=== PATIENT | female | born 1975 | race Caucasian/White ===

== ENCOUNTER 2016-08-22 18:17 | Inpatient (IN) ==
--- NOTE | 2016-08-22 18:41 | Emergency Department Note ---
Disposition Clinical Impression: Pneumothorax Qualifiers: Pneumothorax type: spontaneous, primary Qualified Code(s): J93.11 - Primary spontaneous pneumothorax Disposition: Admitted As Inpatient Condition: Good Referrals: NO,PCP [Non-Partnered Physician] - Forms: ED Satisfaction Letter Time of Disposition: 19:09 SOB HPI - General Chief Complaint: ED Shortness of Breath/Dyspnea Stated Complaint: shortness of breath Time Seen by Provider: 08/22/16 18:32 Source: patient Mode of arrival: ambulatory Limitations: no limitations Nursing Notes Reviewed: Yes Vital Signs Reviewed: Yes - History of Present Illness 40-year-old female who states she's had exertional dyspnea for about a week. She thought she pulled a muscle in her back and was treating him based on that she went to see a chiropractor and had an adjustment but it really didn't help. He was seen at an outside clinic and they were concerned that her breath sounds were diminished on the left side. She presents now for evaluation. Pt Subjective Complaint: shortness of breath Onset (ago): day(s) Context: recent illness Severity: moderate Consistency/Duration: intermittent Improves with: rest Worsens with: exertion Associated symptoms: Reports: cough. Denies: fever Treatment prior to arrival: none - Related Data Home Medications Medication Instructions Recorded Confirmed Norgestimate-Ethinyl Estradiol 1 each PO DAILY 08/22/16 08/22/16 [Sprintec 28 Day Tablet] Allergies Allergy/AdvReac Type Severity Reaction Status Date / Time Penicillins Allergy Hives Verified 08/22/16 18:26 All systems ED: reviewed and negative except as stated. Constitutional: Denies: fever, chills, weakness, weight change Eyes: Denies: eye pain, eye discharge, vision change ENT ED: Denies: ear pain, throat pain, dental pain, hearing loss, epistaxis, congestion, dysphagia Cardiovascular: Denies: chest pain, palpitations, dyspnea on exertion, edema, syncope Respiratory: Reports: cough, dyspnea. Denies: wheezes, hemoptysis, stridor Gastrointestinal: Denies: abdominal pain, nausea, vomiting, diarrhea, constipation, hematemesis, melena, hematochezia Genitourinary: Denies: dysuria, frequency, hematuria, discharge Musculoskeletal: Denies: back pain, neck pain, arthralgia, myalgia Integumentary: Denies: rash, abrasion, lesions Neurological: Denies: headache, weakness, numbness, paresthesias, confusion, abnormal gait, vertigo Psychiatric: Denies: anxiety, depression, suicidal thoughts, homicidal thoughts , auditory hallucinations, visual hallucinations Endocrine: Denies: fatigue Hematological/Lymphatic: Denies: easy bleeding, easy bruising Allergic/Immunologic: Denies: facial swelling, urticaria Past Medical History - Past Medical History Medical history: Reports: no medical history Psychiatric history: Reports: no psych history - Social History Smoking Status: Never smoker Smokeless Tobacco Status: No Alcohol use: Reports: occasionally Drug use: Reports: none Physical Exam - General Limitations: no limitations General appearance: alert, in no apparent distress - Head Head exam: atraumatic, normocephalic, normal inspection - Eye Eye exam: Present: normal appearance, PERRL, EOMI - ENT ENT exam: normal exam, normal oropharynx, mucous membranes moist - Neck Neck exam: Present: normal inspection, full ROM, trachea midline, other (Neck veins are not distended) - Chest Chest inspection: Present: normal inspection, symmetric chest wall rise - Respiratory Respiratory exam: Present: other (Breath sounds diminished on the left) - Cardiovascular Cardiovascular exam: Present: normal rhythm, tachycardia, normal heart sounds - Abdominal Exam Abdominal exam: Present: soft, Non-Tender. Absent: tenderness, distention, guarding, rebound, rigidity - Extremities Exam Extremities exam: Present: normal inspection, full ROM. Absent: tenderness, pedal edema - Expanded Lower Extremity Exam Neurovascular/Tendon exam: Absent: motor deficit, sensory deficit, tendon deficit Gait: observed and normal - Back Exam Back exam: Present: normal inspection, full ROM. Absent: tenderness - Neurological Exam Neurological exam: Present: alert, oriented X3 - Psychiatric Psychiatric exam: Present: normal affect, normal mood - Skin Skin exam: Present: warm, dry, intact, normal color Course - Reevaluation(s) Reevaluation #1: Please see resident's dictation for chest tube placement. Time: 19:48 - Consultations Consultation #1: Discussed with Dr. Mcmahon, admit hospitalist and consult. Time: 19:07 Consultation #2: Discussed with aylin Marroquin. Time: 19:53 Vital Signs Temperature 98 F 08/22/16 18:21 Pulse Rate 114 08/22/16 18:21 Respiratory Rate 16 08/22/16 18:21 Blood Pressure 122/78 08/22/16 18:21 O2 Sat by Pulse Oximetry 95 08/22/16 18:21 Temperature 98 F 08/22/16 18:21 Pulse Rate 102 08/22/16 19:52 Respiratory Rate 16 08/22/16 19:52 Blood Pressure 122/80 08/22/16 19:52 O2 Sat by Pulse Oximetry 98 08/22/16 19:52 Oxygen Delivery Oxygen Delivery Room Air Shortness of Breath/Dyspnea - Lab Data Lab results reviewed: Yes I reviewed the patient's lab results. Result diagrams: 08/22/16 18:57 08/22/16 18:57 Lab Results 08/22/16 08/22/16 08/22/16 Range/Units 18:57 18:57 18:57 WBC 10.3 (4.3-11.1) K/mcL RBC 4.72 (3.82-4.97) M/mcL Hgb 12.9 (11.5-15.4) g/dL Hct 39.0 (35.3-44.9) % MCV 82.6 L (83.0-100.0) fL MCH 27.3 L (28.0-33.3) pg MCHC 33.1 (31.6-35.5) g/dL RDW 13.7 (11.5-14.5) % Plt Count 433 H (140-400) K/mcL MPV 9.0 L (9.4-12.4) fL Immature Gran % 0.2 (0-4) % Seg Neutrophils % 78.0 % Lymphocytes % 15.9 % Monocytes % 5.4 % Eosinophils % 0.1 % Basophils % 0.4 % Neutrophils # 8.1 (1.6-8.9) K/mcL Lymphocytes # 1.6 (0.6-4.6) K/mcL Monocytes # 0.6 (0.0-1.3) K/mcL Eosinophils # 0.0 (0.0-0.6) K/mcL Basophils # 0.0 (0.0-0.2) K/mcL D-Dimer 633 H (0-500) ng/mLFEU Sodium 137 (136-145) mEq/L Potassium 3.7 (3.5-4.5) mEq/L Chloride 104 (98-109) mEq/L Carbon Dioxide 23 (19-29) mEq/L BUN 13 (7-20) mg/dL Creatinine 1.00 (0.57-1.11) mg/dL Est GFR ( Amer) > 60 (> 60) Est GFR (Non-Af Amer) > 60 (> 60) BUN/Creatinine Ratio 13 (6-26) Glucose 108 H (70-99) mg/dL Calculated Osmolality 285 (280-300) Calcium 9.0 (8.6-10.8) mg/dL Troponin I (0-0.03) ng/mL 08/22/16 Range/Units 18:57 WBC (4.3-11.1) K/mcL RBC (3.82-4.97) M/mcL Hgb (11.5-15.4) g/dL Hct (35.3-44.9) % MCV (83.0-100.0) fL MCH (28.0-33.3) pg MCHC (31.6-35.5) g/dL RDW (11.5-14.5) % Plt Count (140-400) K/mcL MPV (9.4-12.4) fL Immature Gran % (0-4) % Seg Neutrophils % % Lymphocytes % % Monocytes % % Eosinophils % % Basophils % % Neutrophils # (1.6-8.9) K/mcL Lymphocytes # (0.6-4.6) K/mcL Monocytes # (0.0-1.3) K/mcL Eosinophils # (0.0-0.6) K/mcL Basophils # (0.0-0.2) K/mcL D-Dimer (0-500) ng/mLFEU Sodium (136-145) mEq/L Potassium (3.5-4.5) mEq/L Chloride (98-109) mEq/L Carbon Dioxide (19-29) mEq/L BUN (7-20) mg/dL Creatinine (0.57-1.11) mg/dL Est GFR ( Amer) (> 60) Est GFR (Non-Af Amer) (> 60) BUN/Creatinine Ratio (6-26) Glucose (70-99) mg/dL Calculated Osmolality (280-300) Calcium (8.6-10.8) mg/dL Troponin I 0.00 (0-0.03) ng/mL - Radiology Data Radiology results reviewed: Yes I reviewed the patient's radiology results. Chest X-Ray 08/22/16 19:31 IMPRESSION: Interval placement of small bore left-sided chest tube, projecting over the left upper lobe, with near complete resolution of left-sided tension pneumothorax. Patchy airspace opacity at the left base likely related to atelectasis D/ / Asaf Robert MD / Asaf Robert MD Interpreting Provider: Asaf Robert MD - EKG Data EKG attestation: Yes I reviewed and interpreted this EKG. EKG shows normal: Reports: sinus rhythm Rate: Reports: normal Rhythm: Reports: NSR Interpretation: Reports: no acute changes Critical Care Time Critical Care Time: Yes Total Critical Care Time: 30 Attestation: The high probability of a clinically significant, sudden or life threatening deterioration of the [respiratory] system(s) required my full and direct attention, intervention and personal management. The aggregate critical care time was [30] minutes. This time is in addition to time spent performing reported procedures but includes the following: [x] Data Review and interpretation [x] Patient assessment and monitoring of vital signs [x] Documentation [x] Medication orders and management
[2016-08-22 19:05] LABS: Basophils % 0.4 %; Eosinophils % 0.1 %; Hemoglobin 12.9 g/dL (11.5-15.4); Immature Granulocytes % 0.2 % (0-4); Lymphocytes # 1.6 K/mcL (0.6-4.6); Lymphocytes % 15.9 %; Mean Corpuscular HGB Conc 33.1 g/dL (31.6-35.5); Mean Corpuscular Hemoglobin 27.3 pg (28.0-33.3); Mean Corpuscular Volume 82.6 fL (83.0-100.0); Monocytes # 0.6 K/mcL (0.0-1.3); Monocytes % 5.4 %; Neutrophils # 8.1 K/mcL (1.6-8.9); Platelet Count 433 K/mcL (140-400); Red Blood Count 4.72 M/mcL (3.82-4.97); Red Cell Distribution Width 13.7 % (11.5-14.5)
[2016-08-22] MEDS ORDERED: Lidocaine/EPI 1:100k 1% 20 ML VIAL INFILT ONE (19:14)
[2016-08-22 19:17] LABS: BUN/Creatinine Ratio 13 (6-26); Blood Urea Nitrogen 13 mg/dL (7-20); Carbon Dioxide 23 mEq/L (19-29); Chloride 104 mEq/L (98-109); Glucose 108 mg/dL (70-99); Osmolality,Calculated 285 (280-300); Potassium 3.7 mEq/L (3.5-4.5); Sodium 137 mEq/L (136-145); eGFR For African Americans > 60 (> 60); eGFR For Non-African Americans > 60 (> 60)
[2016-08-22] MEDS ORDERED: Acetaminophen 325 MG TABLET PO PRN (20:09)
[2016-08-22] MEDS ORDERED: Naloxone 0.4 MG/ML INJ IVP PRN (20:09)
[2016-08-22] MEDS ORDERED: Ondansetron 4 MG/2 ML VIAL IVP PRN (20:09)
[2016-08-22] MEDS ORDERED: 0.9 % Sodium Chloride 1,000 ML IVC SCH (20:15)
--- NOTE | 2016-08-22 20:17 | Emergency Department Note ---
Disposition Clinical Impression: Pneumothorax Qualifiers: Pneumothorax type: spontaneous, primary Qualified Code(s): J93.11 - Primary spontaneous pneumothorax Disposition: Admitted As Inpatient Condition: Good Referrals: NO,PCP [Non-Partnered Physician] - Forms: ED Satisfaction Letter General Adult HPI - General Chief complaint: ED Shortness of Breath/Dyspnea Stated complaint: shortness of breath Time Seen by Provider: 08/22/16 18:32 Source: patient Mode of arrival: ambulatory Limitations: no limitations - History of Present Illness HPI Narrative: This note serves as a procedure note for the left-sided tube thoracostomy. Please refer to Dr. Barragan's note for complete history of present illness, physical exam, clinical course. Pain Scale: 0 - Related Data Home Medications Medication Instructions Recorded Confirmed Norgestimate-Ethinyl Estradiol 1 each PO DAILY 08/22/16 08/22/16 [Sprintec 28 Day Tablet] Allergies Allergy/AdvReac Type Severity Reaction Status Date / Time Penicillins Allergy Hives Verified 08/22/16 18:26 Constitutional: Denies: fever, chills, weakness, weight change Eyes: Denies: eye pain, eye discharge, vision change ENT ED: Denies: ear pain, throat pain, dental pain, hearing loss, epistaxis, congestion, dysphagia Cardiovascular: Denies: chest pain, palpitations, dyspnea on exertion, edema, syncope Respiratory: Reports: cough, dyspnea. Denies: wheezes, hemoptysis, stridor Gastrointestinal: Denies: abdominal pain, nausea, vomiting, diarrhea, constipation, hematemesis, melena, hematochezia Genitourinary: Denies: dysuria, frequency, hematuria, discharge Musculoskeletal: Denies: back pain, neck pain, arthralgia, myalgia Integumentary: Denies: rash, abrasion, lesions Neurological: Denies: headache, weakness, numbness, paresthesias, confusion, abnormal gait, vertigo Psychiatric: Denies: anxiety, depression, suicidal thoughts, homicidal thoughts , auditory hallucinations, visual hallucinations Endocrine: Denies: fatigue Hematological/Lymphatic: Denies: easy bleeding, easy bruising Allergic/Immunologic: Denies: facial swelling, urticaria Past Medical History - Past Medical History Medical history: Reports: no medical history Psychiatric history: Reports: no psych history - Social History Smoking Status: Never smoker Smokeless Tobacco Status: No Alcohol use: Reports: occasionally Drug use: Reports: none Physical Exam - General Limitations: no limitations General appearance: alert, in no apparent distress Course Vital Signs Temperature 98 F 08/22/16 18:21 Pulse Rate 114 08/22/16 18:21 Respiratory Rate 16 08/22/16 18:21 Blood Pressure 122/78 08/22/16 18:21 O2 Sat by Pulse Oximetry 95 08/22/16 18:21 Temperature 98 F 08/22/16 18:21 Pulse Rate 102 08/22/16 19:52 Respiratory Rate 16 08/22/16 19:52 Blood Pressure 122/80 08/22/16 19:52 O2 Sat by Pulse Oximetry 98 08/22/16 19:52 Oxygen Delivery Oxygen Delivery Room Air Procedures - Chest Tube Chest Tube 1 Chest Tube Location: left Size of Tube (cm): 8 (8fr) Chest Tube Prep: betadine prep, sterile drapes applied Local Anesthetic: lidocaine 1%, with epi Amount of Anesthesia Used (mL): 8 Incision Made With: #11 blade Post Procedure: sutured to skin, sterile dressing applied Tube Drainage: other (air) Post Procedure CXR?: Yes Patient Tolerated Procedure: Yes Progress: Procedure performed by myself. Observed by Dr. Chaney and my attending, Dr. Fox. 8fr tube thoracostomy placed in the left anterior axillary line of the fifth intercostal space. Postprocedure x-ray showed appropriate tube placement angled cephalad with improvement in left-sided pneumothorax. Medical Decision Making - Lab Data Result diagrams: 08/22/16 18:57 08/22/16 18:57 Lab Results 08/22/16 08/22/16 08/22/16 Range/Units 18:57 18:57 18:57 WBC 10.3 (4.3-11.1) K/mcL RBC 4.72 (3.82-4.97) M/mcL Hgb 12.9 (11.5-15.4) g/dL Hct 39.0 (35.3-44.9) % MCV 82.6 L (83.0-100.0) fL MCH 27.3 L (28.0-33.3) pg MCHC 33.1 (31.6-35.5) g/dL RDW 13.7 (11.5-14.5) % Plt Count 433 H (140-400) K/mcL MPV 9.0 L (9.4-12.4) fL Immature Gran % 0.2 (0-4) % Seg Neutrophils % 78.0 % Lymphocytes % 15.9 % Monocytes % 5.4 % Eosinophils % 0.1 % Basophils % 0.4 % Neutrophils # 8.1 (1.6-8.9) K/mcL Lymphocytes # 1.6 (0.6-4.6) K/mcL Monocytes # 0.6 (0.0-1.3) K/mcL Eosinophils # 0.0 (0.0-0.6) K/mcL Basophils # 0.0 (0.0-0.2) K/mcL D-Dimer 633 H (0-500) ng/mLFEU Sodium 137 (136-145) mEq/L Potassium 3.7 (3.5-4.5) mEq/L Chloride 104 (98-109) mEq/L Carbon Dioxide 23 (19-29) mEq/L BUN 13 (7-20) mg/dL Creatinine 1.00 (0.57-1.11) mg/dL Est GFR ( Amer) > 60 (> 60) Est GFR (Non-Af Amer) > 60 (> 60) BUN/Creatinine Ratio 13 (6-26) Glucose 108 H (70-99) mg/dL Calculated Osmolality 285 (280-300) Calcium 9.0 (8.6-10.8) mg/dL Troponin I (0-0.03) ng/mL 08/22/16 Range/Units 18:57 WBC (4.3-11.1) K/mcL RBC (3.82-4.97) M/mcL Hgb (11.5-15.4) g/dL Hct (35.3-44.9) % MCV (83.0-100.0) fL MCH (28.0-33.3) pg MCHC (31.6-35.5) g/dL RDW (11.5-14.5) % Plt Count (140-400) K/mcL MPV (9.4-12.4) fL Immature Gran % (0-4) % Seg Neutrophils % % Lymphocytes % % Monocytes % % Eosinophils % % Basophils % % Neutrophils # (1.6-8.9) K/mcL Lymphocytes # (0.6-4.6) K/mcL Monocytes # (0.0-1.3) K/mcL Eosinophils # (0.0-0.6) K/mcL Basophils # (0.0-0.2) K/mcL D-Dimer (0-500) ng/mLFEU Sodium (136-145) mEq/L Potassium (3.5-4.5) mEq/L Chloride (98-109) mEq/L Carbon Dioxide (19-29) mEq/L BUN (7-20) mg/dL Creatinine (0.57-1.11) mg/dL Est GFR ( Amer) (> 60) Est GFR (Non-Af Amer) (> 60) BUN/Creatinine Ratio (6-26) Glucose (70-99) mg/dL Calculated Osmolality (280-300) Calcium (8.6-10.8) mg/dL Troponin I 0.00 (0-0.03) ng/mL
--- NOTE | 2016-08-22 20:18 | Internal Med History&Physical ---
Date of Encounter: 08/22/16 Time of Encounter: 20:15 Assessment and Plan (1) Pneumothorax Current visit: Yes Status: Acute Left tension pneumothorax status post chest tube placed Follow with surgery/Dr. Salome Dennison separate for DT prophylaxis. Admitted as inpatient, expected to stay more than 2 midnights. Full code. Time spent on this admission 40 minutes. High risk due to pneumothorax Qualifiers: Pneumothorax type: spontaneous, tension Qualified Code(s): J93.0 - Spontaneous tension pneumothorax (2) Elevated d-dimer Current visit: Yes Status: Acute Unclear etiology As the patient is on control, we will have a very low threshold to perform a CT angiogram of the chest if needed if not improving Risks were explained to the patient, option to do it was given (3) control Current visit: Yes Status: Acute Qualifiers: Contraceptive encounter type: surveillance Contraceptive type: pill Qualified Code(s): Z30.41 - Encounter for surveillance of contraceptive pills (4) Thrombocytosis Current visit: Yes Status: Acute (5) Tachycardia Current visit: Yes Status: Acute Possibly due to pneumothorax, consider pulmonary emboli if not improving (6) DVT prophylaxis Current visit: Yes Status: Acute Internal Medicine - H&P: HPI Chief complaint: Shortness of breath Admitted From: Emergency Dept History of present illness: Ms. Hood is a 40 year old female with no past medical history who started complaining of left thorax thoracic 1 week ago, became short of breath this last Saturday. 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 Continue emergency room and the chest x-ray shows a little left large tension pneumothorax. A chest tube was placed. Dr. Mcmahon was consulted and requested this patient to be admitted today hospitalist service. The patient's platelets are 443 d-dimer 633 her heart rate has decreased from 114 down to 102. Denies any other complaint. The pain at the moment is 2 out of 10. Was explained that she needs to be hospitalized and we will have a low threshold to do a CT angiography the chest if the shortness of breath persists. Chest x-ray shows complete reexpansion of the left lung Past Med Surg Social Fam HX - Past Medical History Medical history: no medical history Psychiatric history: no psych history - Past Surgical History Surgical History: other ([place] tooth removal) - Social History Smoking Status: Never smoker Smokeless Tobacco Status: No Alcohol use: occasionally Drug use: none - Additional Family History Additional family history: Mother with ablation, maternal grandfather who of myocardial infarction at the age of 37, maternal grandmother with diabetes, paternal grandfather with lung cancer Internal Medicine - H&P: Meds Norgestimate-Ethinyl Estradiol [Sprintec 28 Day Tablet] 1 each PO DAILY [History] Allergies Penicillins Allergy (Verified 08/22/16 18:26) Hives All Systems PM: A 10-system review of systems was performed and is negative for pertinent findings except as documented above in the HPI. Review of systems: No other complaints, other systems out of the ten reviewed are negative - Constitutional Vitals: Temp Pulse Resp BP Pulse Ox 98 F 102 16 122/80 98 08/22/16 18:21 08/22/16 19:52 08/22/16 19:52 08/22/16 19:52 08/22/16 19:52 General appearance: Present: A&O X 3 - Head Head exam: Present: atraumatic, normocephalic - Eye Eye exam: Present: PERRL, conjuntiva pink, sclera anicteric Pupils: Present: PERRL - Neck Neck exam general surgery: Present: supple, trachea midline. Absent: lymphadenopathy - Respiratory Respiratory exam: Present: CTAB. Absent: accessory muscle use, rales, rhonchi, wheezes - Cardiovascular Cardiovascular exam: Present: RRR, +S1, +S2. Absent: diastolic murmur, gallop, rubs, systolic murmur Additional comments: Chest tube placed in the left lateral thorax - GI/Abdominal GI/Abdominal exam: Present: normal bowel sounds, soft, no peritoneal signs. Absent: distended, tenderness - Extremities Exam Extremities exam: Present: warm, radial pulses palpable and symetrical. Absent : calf tenderness, cyanotic, pedal edema - Neurological Exam Neurological exam: Present: CN II-XII intact, oriented X3, no focal deficits. Absent: pronater drift, facial droop, speech deficit - Skin Skin exam: Present: dry, intact Internal Med - H&P Results - Labs CBC & Chem 7: 08/22/16 18:57 08/22/16 18:57 Labs: Short CBC 08/22/16 Range/Units 18:57 WBC 10.3 (4.3-11.1) K/mcL Hgb 12.9 (11.5-15.4) g/dL Hct 39.0 (35.3-44.9) % Plt Count 433 H (140-400) K/mcL Neutrophils # 8.1 (1.6-8.9) K/mcL BMP 08/22/16 18:57 Sodium 137 Potassium 3.7 Chloride 104 Carbon Dioxide 23 BUN 13 Creatinine 1.00 Glucose 108 H Calcium 9.0 Cardiac Enzymes 08/22/16 Range/Units 18:57 Troponin I 0.00 (0-0.03) ng/mL - Impressions ITS Impressions Chest X-Ray 08/22/16 18:38 IMPRESSION: Large left tension pneumothorax. Findings were called to Dr. Barragan of the Emergency Department at 7 p.m., 08/22/2016. D/ / 08/22/2016 19:05:23 Asaf Robert MD / yanet Interpreting Provider: Asaf Robert MD Chest X-Ray 08/22/16 19:31 IMPRESSION: Interval placement of small bore left-sided chest tube, projecting over the left upper lobe, with near complete resolution of left-sided tension pneumothorax. Patchy airspace opacity at the left base likely related to atelectasis. D/ / 08/22/2016 20:08:41 Asaf Robert MD / yanet Interpreting Provider: Asaf Robert MD
[2016-08-23] MEDS: *HR* Heparin 5,000 UNIT/ML VIAL SQ SCH ×2 (00:45→08:43)
[2016-08-23] MEDS: Ketorolac 30 MG/ML VIAL IVP PRN (03:40)
[2016-08-23 05:11] LABS: Basophils # 0.1 K/mcL (0.0-0.2); Basophils % 0.6 %; Eosinophils # 0.1 K/mcL (0.0-0.6); Eosinophils % 1.1 %; Hematocrit 36.3 % (35.3-44.9); Hemoglobin 11.7 g/dL (11.5-15.4); Immature Granulocytes % 0.3 % (0-4); Lymphocytes # 2.4 K/mcL (0.6-4.6); Lymphocytes % 25.5 %; Mean Corpuscular HGB Conc 32.2 g/dL (31.6-35.5); Mean Corpuscular Hemoglobin 27.1 pg (28.0-33.3); Mean Corpuscular Volume 84.2 fL (83.0-100.0); Mean Platelet Volume 9.6 fL (9.4-12.4); Monocytes # 0.8 K/mcL (0.0-1.3); Monocytes % 8.6 %; Platelet Count 368 K/mcL (140-400); Red Blood Count 4.31 M/mcL (3.82-4.97); Red Cell Distribution Width 13.7 % (11.5-14.5); Segmented Neutrophils % 63.9 %
[2016-08-23 05:35] LABS: BUN/Creatinine Ratio 14 (6-26); Blood Urea Nitrogen 13 mg/dL (7-20); Calcium 8.4 mg/dL (8.6-10.8); Carbon Dioxide 26 mEq/L (19-29); Chloride 106 mEq/L (98-109); Glucose 102 mg/dL (70-99); Osmolality,Calculated 286 (280-300); Potassium 3.4 mEq/L (3.5-4.5); Sodium 138 mEq/L (136-145); eGFR For African Americans > 60 (> 60); eGFR For Non-African Americans > 60 (> 60)
[2016-08-23] MEDS: SPRINTEC PO SCH (08:43)
--- NOTE | 2016-08-23 09:24 | Electrocardiograph Report ---
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
--- NOTE | 2016-08-23 13:23 | Internal Med Progress Note ---
<Marybeth Vidales - Last Filed: 08/23/16 13:52> Date of Encounter: 08/23/16 Time of Encounter: 13:16 - Assessment and plan (1) Spontaneous tension pneumothorax Current Visit: Yes Status: Acute Assessment and plan: pt with unknown cause of spontaneous tension pneumothorax CT scan with large left sided pneumothorax chest tube placed by Dr. Mcmahon overnight repeat CT scan this morning with smaller residual pneumothorax pt today states resolution of dyspnea, 98%saturation on room air (2) Pneumothorax Current Visit: Yes Status: Acute Qualifiers: Pneumothorax type: spontaneous, tension Qualified Code(s): J93.0 - Spontaneous tension pneumothorax (3) Elevated d-dimer Current Visit: Yes Status: Acute Assessment and plan: ddimer 633 recently started on oral contraceptives CTA - for PE (4) control Current Visit: Yes Status: Acute Assessment and plan: started recently by her OBgyn for uterine bleeding not recommended for pts >35 ddimer elevated 633 will get CTA chest follow up with OBgyn Qualifiers: Contraceptive encounter type: surveillance Contraceptive type: pill Qualified Code(s): Z30.41 - Encounter for surveillance of contraceptive pills (5) Tachycardia Current Visit: Yes Status: Acute Assessment and plan: resolved (6) DVT prophylaxis Current Visit: Yes Status: Acute Assessment and plan: SQ heparin - Subjective Interval history: 40 yo F presented with severe conversational dyspnea, admitted with a spontaneous tension pneumothorax of left side. Dr. Mcmahon was consulted and placed left sided chest tube lastnight. Pt states that dyspnea completely resolved with placement of chest tube. Pt states that she had some dyspnea start last week after doing a trail run but has not hano chest, back or other trauma occur. States she never smoked, does not have asthma, COPD. Denies known blood clots and has not been on any new medications besides starting OCP a few weeks ago. Pt denies current chest pain, palpitations, shortness of breath, cough, calf pain, fever, chills, nausea, vomiting. - Constitutional Vitals: Temp Pulse Resp BP Pulse Ox 98.6 F 84 17 123/75 98 08/23/16 04:36 08/23/16 07:00 08/23/16 07:00 08/23/16 07:00 08/23/16 07:00 General appearance: Present: A&O X 3, pleasant, no acute distress, answers questions appropriately - Head Head exam: Present: atraumatic, normocephalic - Eye Eye exam: Present: EOMI, PERRL, conjuntiva pink, sclera anicteric Pupils: Present: PERRL - Neck Neck exam general surgery: Present: supple, trachea midline. Absent: lymphadenopathy - Respiratory Respiratory exam: Present: decreased breath sounds (left base). Absent: accessory muscle use, chest wall tenderness, rales, respiratory distress, rhonchi, stridor, wheezes, tachypnea Additional comments: no conversational dyspnea, 98%saturation on room air - Expanded Respiratory Exam Location: decreased breath sounds: Left, Lower - Cardiovascular Cardiovascular exam: Present: RRR, +S1, +S2. Absent: diastolic murmur, gallop, rubs, systolic murmur - GI/Abdominal GI/Abdominal exam: Present: normal bowel sounds, soft, no peritoneal signs. Absent: distended, tenderness - Extremities Exam Extremities exam: Present: warm, radial pulses palpable and symetrical. Absent : calf tenderness, cyanotic, pedal edema - Incison Incision: Present: clean and dry, intact Comments: left sided chest tube in place to wall suction, C/D/I - Neurological Exam Neurological exam: Present: CN II-XII intact, oriented X3, no focal deficits. Absent: pronater drift, facial droop, speech deficit - Skin Skin exam: Present: dry, intact Internal Medicine: Result - Labs CBC & Chem 7: 08/23/16 04:17 08/23/16 04:17 Labs: Short CBC 08/23/16 Range/Units 04:17 WBC 9.4 (4.3-11.1) K/mcL Hgb 11.7 (11.5-15.4) g/dL Hct 36.3 (35.3-44.9) % Plt Count 368 (140-400) K/mcL Neutrophils # 6.0 (1.6-8.9) K/mcL BMP 08/23/16 04:17 Sodium 138 Potassium 3.4 L Chloride 106 Carbon Dioxide 26 BUN 13 Creatinine 0.94 Glucose 102 H Calcium 8.4 L - ABG Interpretation ABG results: PT/INR, D-dimer D-Dimer 633 ng/mLFEU (0-500) H 08/22/16 18:57 - Impressions Impressions Chest CTA 08/23/16 11:00 IMPRESSION: 1. No findings of pulmonary embolism. 2. Trace to small left pneumothorax with a left percutaneous pleural drainage catheter in place. No findings of tension. 3. Trace left pleural effusion. 4. Peribronchovascular groundglass opacities near the left lung base, most likely atelectasis or re-expansion edema. Pneumonia could appear similar. D/ / Konstantin Lemus MD / Konstantin Lemus MD Interpreting Provider: Konstantin Lemus MD Consult Discharge Plan - Plan Referrals: Padilla Flannery DO [Primary Care Provider] - <Erick Keith - Last Filed: 08/23/16 18:47> Date of Encounter: 08/23/16 - Assessment and plan (1) Spontaneous tension pneumothorax Current Visit: Yes Status: Acute (2) Elevated d-dimer Current Visit: Yes Status: Acute - Constitutional Vitals: Temp Pulse Resp BP Pulse Ox 98.6 F 69 16 120/76 98 08/23/16 04:36 08/23/16 15:00 08/23/16 15:00 08/23/16 15:00 08/23/16 07:00 Internal Medicine: Result - Labs CBC & Chem 7: 08/23/16 04:17 08/23/16 04:17 Labs: Short CBC 08/23/16 Range/Units 04:17 WBC 9.4 (4.3-11.1) K/mcL Hgb 11.7 (11.5-15.4) g/dL Hct 36.3 (35.3-44.9) % Plt Count 368 (140-400) K/mcL Neutrophils # 6.0 (1.6-8.9) K/mcL BMP 08/23/16 04:17 Sodium 138 Potassium 3.4 L Chloride 106 Carbon Dioxide 26 BUN 13 Creatinine 0.94 Glucose 102 H Calcium 8.4 L - ABG Interpretation ABG results: PT/INR, D-dimer D-Dimer 633 ng/mLFEU (0-500) H 08/22/16 18:57 - Impressions Impressions Chest CTA 08/23/16 11:00 IMPRESSION: 1. No findings of pulmonary embolism. 2. Trace to small left pneumothorax with a left percutaneous pleural drainage catheter in place. No findings of tension. 3. Trace left pleural effusion. 4. Peribronchovascular groundglass opacities near the left lung base, most likely atelectasis or re-expansion edema. Pneumonia could appear similar. D/ / Konstantin Lemus MD / Konstantin Lemus MD Interpreting Provider: Konstantin Lemus MD Chest X-Ray 08/23/16 16:30 IMPRESSION: Tiny residual left apical pneumothorax after removal of left chest tube. D/ / Hernan Breaux MD / Hernan Breaux MD Interpreting Provider: Hernan Breaux MD - Attending Attestation I examined this patient and my medical decision-making was reviewed with the Resident Physician on 08/23/16. I agree with the documented findings, disposition and treatment plan as described except to the extent set forth below. Ms Hood is currently admitted for acute spontaneous tension PTX. She is high risk due to the potential for recurrence. Ms. Hood denies issues at this time. Chest tube has been managed by surgery and has been removed this afternoon. Repeat CXR shows small residual PTX. She is on oxygen now. Exam Alert. Comfortable Heart reg No wheeze I/P 1. PTX Further diagnoses and plan as above.
--- NOTE | 2016-08-23 15:06 | Pulmonology Consult Note ---
Date of Encounter: 08/23/16 Time of Encounter: 15:03 Assessment and Plan (1) Pneumothorax Current Visit: Yes Status: Acute Impression Spontaneous primary pneumothorax. Appears to be idiopathic. No relationship to menses no antecedent trauma no family history no smoking history CTA with that was performed today was not indicative of underlying intrinsic lung pathology (such as cystic lung disease or bullous lung disease with spontaneous rupture). It was however notable for small residual pneumothorax at the time chest tube was still in situ. When I examined the patient the chest tube had been removed she was not a distress and oxygen saturation was in the high 90s on room air a chest x-ray is pending at the present moment. Recs: -Repeat chest x-ray present if patient does not have any residual pneumothorax seen on chest x-ray otherwise hemodynamically stable good oxygen saturation denies symptoms could likely be discharged home safely later in the day she is reliable patient and understands what her symptoms were. -If there is evidence of residual pneumothorax I would recommend keeping patient for monitoring and placement on nasal cannula oxygen to keep saturation in the 100% overnight. Unless termination of large pneumothorax do not feel that placement of another chest tube would be necessary -As far as risk of repeat pneumothorax in general terms about a third of patients to experience repeat pneumothorax majority of these are in the first month. Went to the patient that there are no clear guidelines on activity after her first pneumothorax however be prudent to avoid at least within the first month underwater diving air travel or strain his exercise such as jogging in isolated venues. -Should the patient experience another episode of pneumothorax recommend referral to Cardiothoracic surgery for pleurodesis. -Although she does not have any evidence of intrinsic lung disease current imaging the CT angiogram is not the test of choice for delineating this I did welcome the patient to follow with us in pulmonary clinic in the next 2-3 months for ongoing evaluation and possible high-resolution CT scan. Pulmonary will continue to follow while she is inpatient Qualifiers: Pneumothorax type: spontaneous, tension Qualified Code(s): J93.0 - Spontaneous tension pneumothorax History of Present Illness Consult date: 08/23/16 Requesting physician: Erick Keith Reason for consult: pneumothorax Chief complaint: Shortness of breath History of present illness: This 40-year-old woman with no significant past medical history who presented to the ED for worsening dyspnea chest pain and tachycardia. Her symptoms began last week when she thought she may have pulled a muscle in her back. That was on Saturday over the course of the week and the week and she had progressive pain that was not alleviated with massage or chiropractic manipulation though she denies any acupuncture. 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 Upon presentation to the ED she was noted to have large left-sided pneumothorax and a small bore chest tube was placed with overall improvement in reexpansion but not complete resolution. The patient is a lifelong nonsmoker, no family history of pneumothorax. No history of antecedent trauma. Has no recent history of extremes in pressure change i.e. flying or diving. She has never been diagnosed with lung condition to her knowledge. Past Med Surg Social Fam HX - Past Medical History Medical history: no medical history Psychiatric history: no psych history - Past Surgical History Surgical History: other - Social History Smoking Status: Never smoker Smokeless Tobacco Status: No Alcohol use: occasionally Drug use: none - Family History Father Name: alfredo sullivan Age: 64 Living Status: Still Living Hx Family Cardiac Disorders: No Hx Family Respiratory Disorders: No Hx Family Cancer: Yes (skin cancer) Hx Family GI Disorders: Yes (stomach ulcers) Hx Family Genitourinary Disorders: No Hx Family Endocrine Disorder: No Hx Family Musculoskeletal Disorders: No Hx Family Neuromuscular Disorders: No Hx Family Neurologic Disorders: No Hx Family HEENT Disorders: No Hx Family Autoimmune Disorders: No Hx Family Reproductive Disorders: No Hx Family Psychosocial Disorders: No Hx Family Medical Disorders: No Medications and Allergies Norgestimate-Ethinyl Estradiol [Sprintec 28 Day Tablet] 1 each PO DAILY [History] Allergies Penicillins Allergy (Verified 08/22/16 18:26) Hives All Systems: A 10-system review of systems was performed and is negative for pertinent findings except as documented above in the HPI. Physical Examination General appearance: no acute distress Eyes: nonicteric ENT: oropharynx moist Effort: normal Auscultation: bilateral: clear Cardiovascular: regular rate and rhythm Gastrointestinal: normoactive bowel sounds Integumentary: normal Extremities: no edema Musculoskeletal: no deformities normal mental status, non-focal exam Results - Laboratory Findings CBC and BMP: 08/23/16 04:17 08/23/16 04:17 PT/INR, D-dimer D-Dimer 633 ng/mLFEU (0-500) H 08/22/16 18:57 Abnormal lab findings: Abnormal lab results MCH 27.1 pg (28.0-33.3) L 08/23/16 04:17 D-Dimer 633 ng/mLFEU (0-500) H 08/22/16 18:57 Potassium 3.4 mEq/L (3.5-4.5) L 08/23/16 04:17 Glucose 102 mg/dL (70-99) H 08/23/16 04:17 POC Glucose 98 (58-89) H 08/22/16 21:23 Calcium 8.4 mg/dL (8.6-10.8) L 08/23/16 04:17 - Diagnostic Findings Chest x-ray: report reviewed, image reviewed CT scan - chest: report reviewed, image reviewed - Clinical Findings Intake & Output: Intake & Output 08/22/16 08/23/16 08/23/16 23:59 07:59 15:59 Output Total 0 / 0 Balance 0 / 0 Consult Discharge Plan - Plan Referrals: Padilla Flannery DO [Primary Care Provider] -
[2016-08-24] MEDS: SPRINTEC PO SCH (07:51)
--- NOTE | 2016-08-24 09:54 | Internal Med Progress Note ---
<Marybeth Vidales - Last Filed: 08/24/16 09:52> Date of Encounter: 08/24/16 Time of Encounter: 09:52 - Assessment and plan (1) Spontaneous tension pneumothorax Current Visit: Yes Status: Acute Assessment and plan: pt with unknown cause of spontaneous tension pneumothorax CT scan with large left sided pneumothorax chest tube removed by Dr. Mcmahon overnight pt today states resolution of dyspnea, 98%saturation on room air CXR this morning with worsening pneumothorax measuring 34.5, 15% was 28.2 lastnight supplemental oxygen pulmonology recommendations (2) Pneumothorax Current Visit: Yes Status: Acute Qualifiers: Pneumothorax type: spontaneous, tension Qualified Code(s): J93.0 - Spontaneous tension pneumothorax (3) Elevated d-dimer Current Visit: Yes Status: Acute Assessment and plan: ddimer 633 recently started on oral contraceptives CTA - for PE (4) control Current Visit: Yes Status: Acute Assessment and plan: started recently by her OBgyn for uterine bleeding not recommended for pts >35 ddimer elevated 633 will get CTA chest follow up with OBgyn Qualifiers: Contraceptive encounter type: surveillance Contraceptive type: pill Qualified Code(s): Z30.41 - Encounter for surveillance of contraceptive pills (5) Tachycardia Current Visit: Yes Status: Acute Assessment and plan: resolved (6) DVT prophylaxis Current Visit: Yes Status: Acute Assessment and plan: SQ heparin - Subjective Interval history: 40 yo F presented with severe conversational dyspnea, admitted with a spontaneous tension pneumothorax of left side. Dr. Mcmahon was consulted and placed left sided chest tube lastnight. Pt states that dyspnea completely resolved with placement of chest tube. Pt states that she had some dyspnea start last week after doing a trail run but has not had chest, back or other trauma occur. States she never smoked, does not have asthma, COPD. Denies known blood clots and has not been on any new medications besides starting OCP a few weeks ago. Pt denies current chest pain, palpitations, shortness of breath, cough, calf pain, fever, chills, nausea, vomiting. - Constitutional Vitals: Temp Pulse Resp BP Pulse Ox 98.1 F 74 17 115/75 99 08/24/16 07:15 08/24/16 07:15 08/24/16 03:39 08/24/16 07:15 08/24/16 03:39 General appearance: Present: A&O X 3, pleasant, no acute distress, answers questions appropriately - Head Head exam: Present: atraumatic, normocephalic - Eye Eye exam: Present: PERRL, conjuntiva pink, sclera anicteric Pupils: Present: PERRL - Neck Neck exam general surgery: Present: supple, trachea midline. Absent: lymphadenopathy - Respiratory Respiratory exam: Present: CTAB. Absent: accessory muscle use, rales, rhonchi, wheezes Additional comments: O2 sat 99% on 2L NC, no conversational dyspnea - Cardiovascular Cardiovascular exam: Present: RRR, +S1, +S2. Absent: diastolic murmur, gallop, rubs, systolic murmur - GI/Abdominal GI/Abdominal exam: Present: normal bowel sounds, soft, no peritoneal signs. Absent: distended, tenderness - Extremities Exam Extremities exam: Present: warm, radial pulses palpable and symetrical. Absent : calf tenderness, cyanotic, pedal edema - Neurological Exam Neurological exam: Present: CN II-XII intact, oriented X3, no focal deficits. Absent: pronater drift, facial droop, speech deficit - Skin Skin exam: Present: dry, intact Internal Medicine: Result - Labs CBC & Chem 7: 08/23/16 04:17 08/23/16 04:17 - ABG Interpretation ABG results: PT/INR, D-dimer D-Dimer 633 ng/mLFEU (0-500) H 08/22/16 18:57 - Impressions Impressions Chest CTA 08/23/16 11:00 IMPRESSION: 1. No findings of pulmonary embolism. 2. Trace to small left pneumothorax with a left percutaneous pleural drainage catheter in place. No findings of tension. 3. Trace left pleural effusion. 4. Peribronchovascular groundglass opacities near the left lung base, most likely atelectasis or re-expansion edema. Pneumonia could appear similar. D/ / Konstantin Lemus MD / Konstantin Lemus MD Interpreting Provider: Konstantin Lemus MD Chest X-Ray 08/23/16 16:30 IMPRESSION: Tiny residual left apical pneumothorax after removal of left chest tube. D/ / Hernan Breaux MD / Hernan Breaux MD Interpreting Provider: Hernan Breaux MD Chest X-Ray 08/24/16 07:00 IMPRESSION: Slight interval increased size of left apical pneumothorax over 24 hours. This is estimated to be approximately 15%. D/ / Padilla Mitchell MD / Padilla Mitchell MD Interpreting Provider: Padilla Mitchell MD Consult Discharge Plan - Plan Referrals: Padilla Flannery DO [Primary Care Provider] - <Erick Keith - Last Filed: 08/24/16 19:12> Date of Encounter: 08/24/16 - Assessment and plan (1) Spontaneous tension pneumothorax Current Visit: Yes Status: Acute (2) Elevated d-dimer Current Visit: Yes Status: Acute (3) Tachycardia Current Visit: Yes Status: Acute (4) Anxiety about health Current Visit: Yes Status: Acute - Constitutional Vitals: Temp Pulse Resp BP Pulse Ox 98.4 F 78 19 115/77 97 08/24/16 15:44 08/24/16 15:44 08/24/16 15:44 08/24/16 15:44 08/24/16 15:44 Internal Medicine: Result - Labs CBC & Chem 7: 08/23/16 04:17 08/23/16 04:17 - ABG Interpretation ABG results: PT/INR, D-dimer PT 11.1 Seconds (9.4-12.1) 08/24/16 12:35 D-Dimer 633 ng/mLFEU (0-500) H 08/22/16 18:57 - Impressions Impressions Chest X-Ray 08/24/16 07:00 IMPRESSION: Slight interval increased size of left apical pneumothorax over 24 hours. This is estimated to be approximately 15%. D/ / Padilla Mitchell MD / Padilla Mitchell MD Interpreting Provider: Padilla Mitchell MD Chest X-Ray 08/24/16 15:12 IMPRESSION: Interval placement of left pleural catheter, projecting over the left parahilar region, with near complete evacuation of left-sided pneumothorax. D/ / 08/24/2016 16:52:01 Asaf Robert MD / antony Interpreting Provider: Asaf Robert MD - Attending Attestation I examined this patient and my medical decision-making was reviewed with the Resident Physician on 08/24/16. I agree with the documented findings, disposition and treatment plan as described except to the extent set forth below. Ms Hood is currently admitted for acute spontaneous tension PTX. She remains high risk due to the potential for worsening resp status. Ms. Hood is very anxious. The PTX is still present on CXR. Exam Alert. Anxious Heart tachy I/P 1. Spontaneous tension PTX 2. Anxiety I discussed with both surgery and pulm in regards to plan. At this time (and in discussion with the patient) we have elected to place another chest tube and place to suction again. Will recheck xray in AM and hope to be able to put to water seal and ultimately remove.
--- NOTE | 2016-08-24 09:59 | General Surgery Consult Note ---
Date of Encounter: 08/24/16 Time of Encounter: 09:57 Assessment and Plan (1) Pneumothorax Current Visit: Yes Status: Acute [place] catheter tube was removed yesterday by myself. Repeat chest x-ray reveals the same tiny apical pneumothorax was identified on her chest CT. She has no pulmonary embolus. I recommended that she be discharged at home. She knows that if she would experience any chest discomfort and/or shortness of breath she is to contact the office for reevaluation. Qualifiers: Pneumothorax type: spontaneous, tension Qualified Code(s): J93.0 - Spontaneous tension pneumothorax History of Present Illness Consult date: 08/23/16 Reason for consult: chest tube History of present illness: This is a 40-year-old female presents to the emergency department for acute onset of shortness of breath. She states she underwent an exercise regimen last Saturday. She did not feel well following exercise regimen. She then subsequently became more short of breath and was having tachycardia that she identified while working. She presented to the emergency department on Saturday after having continued symptoms through the weekend. She felt back pain and thought she had a soft tissue injury. She rated the shortness of breath as an 8 out of 10 at its worst. She is progressively getting worse with non- tolerance to exercise. Past Med Surg Social Fam HX - Past Medical History Medical history: no medical history Psychiatric history: no psych history - Past Surgical History Surgical History: other - Social History Smoking Status: Never smoker Smokeless Tobacco Status: No Alcohol use: occasionally Drug use: none - Family History Father Name: alfredo sullivan Age: 64 Living Status: Still Living Hx Family Cardiac Disorders: No Hx Family Respiratory Disorders: No Hx Family Cancer: Yes (skin cancer) Hx Family GI Disorders: Yes (stomach ulcers) Hx Family Genitourinary Disorders: No Hx Family Endocrine Disorder: No Hx Family Musculoskeletal Disorders: No Hx Family Neuromuscular Disorders: No Hx Family Neurologic Disorders: No Hx Family HEENT Disorders: No Hx Family Autoimmune Disorders: No Hx Family Reproductive Disorders: No Hx Family Psychosocial Disorders: No Hx Family Medical Disorders: No Medications and Allergies Norgestimate-Ethinyl Estradiol [Sprintec 28 Day Tablet] 1 each PO DAILY [History] Allergies Penicillins Allergy (Verified 08/22/16 18:26) Hives Review of Systems All systems PM: reviewed and no additional remarkable complaints except as stated All systems PM: A 10-system review of systems was performed and is negative for pertinent findings except as documented above in the HPI. General Surgery Exam Initial Vital Signs Temp Pulse Resp BP Pulse Ox 98 F 114 16 122/78 95 08/22/16 18:21 08/22/16 18:21 08/22/16 18:21 08/22/16 18:21 08/22/16 18:21 - General physical appearance well developed, well nourished, no distress - Eyes PERRL, normal ocular movement - Neck trachea midline, no lymphadectomy - Respiratory normal expansion, normal respiratory effort - Cardiovascular Cardiovascular exam: Present: NR - Abdomen Abdomen general surgery: Present: soft, non tender - Integumentary Integumentary general surgery: Present: warm and dry, no abnormal pigmentation - Psychiatric Psychiatric general surgery: Present: A&Ox3, appropriate, speech is normal Exam Initial Vital Signs Temp Pulse Resp BP Pulse Ox 98 F 114 16 122/78 95 08/22/16 18:21 08/22/16 18:21 08/22/16 18:21 08/22/16 18:21 08/22/16 18:21 Results - Labs 08/23/16 04:17 08/23/16 04:17 Abnormal lab results MCH 27.1 pg (28.0-33.3) L 08/23/16 04:17 D-Dimer 633 ng/mLFEU (0-500) H 08/22/16 18:57 Potassium 3.4 mEq/L (3.5-4.5) L 08/23/16 04:17 Glucose 102 mg/dL (70-99) H 08/23/16 04:17 POC Glucose 98 (58-89) H 08/22/16 21:23 Calcium 8.4 mg/dL (8.6-10.8) L 08/23/16 04:17 All other labs normal. - Imaging CT scan - chest: image reviewed Consult Discharge Plan - Plan Referrals: Padilla Flannery DO [Primary Care Provider] -
--- NOTE | 2016-08-24 11:20 | Pulmonology Progress Note ---
Date of Encounter: 08/24/16 Time of Encounter: 11:19 Assessment and Plan (1) Pneumothorax Current Visit: Yes Status: Acute Spontaneous pneumothorax given that and there has been increase in size I would recommend sending to interventional radiology for smallbore chest tube placement for complete evacuation prior to discharge I expressed my sentiments to the patient and she agrees to proceed. She can follow-up in the outpatient pulmonary clinic for possibility of high-resolution CT scan for underlying evaluation of lung parenchyma for a positional cause that was not clearly evident on CTA performed during this hospitalization Qualifiers: Pneumothorax type: spontaneous, tension Qualified Code(s): J93.0 - Spontaneous tension pneumothorax Subjective Principal diagnosis: PTX Interval history: Yesterday chest to was removed however there was a small apical pneumothorax that persisted which is gotten slightly bigger overnight. Patient also feels some increased chest tightness on the left side Objective PUL Vital signs: Last Vital Signs Temp 98.4 F 08/24/16 11:07 Pulse 82 08/24/16 11:07 Resp 18 08/24/16 11:07 BP 108/69 08/24/16 11:07 Pulse Ox 99 08/24/16 03:39 General appearance: no acute distress ENT: oropharynx moist Auscultation: bilateral: clear Cardiovascular: regular rate and rhythm Gastrointestinal: normoactive bowel sounds Extremities: no clubbing normal mental status, non-focal exam anxious Results - Laboratory Findings CBC and BMP: 08/23/16 04:17 08/23/16 04:17 PT/INR, D-dimer D-Dimer 633 ng/mLFEU (0-500) H 08/22/16 18:57 Abnormal lab findings: Abnormal lab results MCH 27.1 pg (28.0-33.3) L 08/23/16 04:17 D-Dimer 633 ng/mLFEU (0-500) H 08/22/16 18:57 Potassium 3.4 mEq/L (3.5-4.5) L 08/23/16 04:17 Glucose 102 mg/dL (70-99) H 08/23/16 04:17 POC Glucose 98 (58-89) H 08/22/16 21:23 Calcium 8.4 mg/dL (8.6-10.8) L 08/23/16 04:17 - Diagnostic Findings Chest x-ray: report reviewed, image reviewed CT scan - chest: report reviewed, image reviewed - Clinical Findings Intake & Output: Intake & Output 08/23/16 08/24/16 08/24/16 23:59 07:59 15:59 Intake Total 0 / 0 0 / 0 240 / 240 Output Total 250 / 250 250 / 250 Balance -250 / -250 -250 / -250 240 / 240 Weight 67.4 kg Consult Discharge Plan - Plan Referrals: Padilla Flannery DO [Primary Care Provider] -
[2016-08-24 12:47] LABS: Prothrombin Time 11.1 Seconds (9.4-12.1)
--- NOTE | 2016-08-24 15:13 | IR Procedure Note ---
Date of procedure: 08/24/16 Consent Obtained: Written consent Timeout: Correct patient and procedure verified, Correct site verified, Time out performed, Skin prep completed Indications: pneumothorax Procedure Performed: chest tube Site/Technique: 8F Results/Findings: left side, anterior approach Estimated blood loss (cc): 2 Complications: None; Tolerated procedure well Post Procedure Treatment Plan: CXR
[2016-08-24] MEDS: Ketorolac 30 MG/ML VIAL IVP PRN (15:32)
--- NOTE | 2016-08-25 09:09 | Internal Med Progress Note ---
<Sobeida,Lauren Nolvia - Last Filed: 08/25/16 09:07> Date of Encounter: 08/25/16 Time of Encounter: 09:07 - Assessment and plan (1) Spontaneous tension pneumothorax Current Visit: Yes Status: Acute Assessment and plan: pt with unknown cause of spontaneous tension pneumothorax CT scan with large left sided pneumothorax 98%saturation on room air supplemental oxygen pulmonology recommendations 08/25 chest tube clamped this morning, repeat CXR at noon today increase ambulation out of room and in hallways (2) Pneumothorax Current Visit: Yes Status: Acute Qualifiers: Pneumothorax type: spontaneous, tension Qualified Code(s): J93.0 - Spontaneous tension pneumothorax (3) Elevated d-dimer Current Visit: Yes Status: Acute Assessment and plan: ddimer 633 recently started on oral contraceptives CTA - for PE (4) control Current Visit: Yes Status: Acute Assessment and plan: started recently by her OBgyn for uterine bleeding not recommended for pts >35 ddimer elevated 633 will get CTA chest follow up with OBgyn Qualifiers: Contraceptive encounter type: surveillance Contraceptive type: pill Qualified Code(s): Z30.41 - Encounter for surveillance of contraceptive pills (5) Tachycardia Current Visit: Yes Status: Acute Assessment and plan: resolved (6) DVT prophylaxis Current Visit: Yes Status: Acute Assessment and plan: SQ heparin - Subjective Interval history: 40 yo F presented with severe conversational dyspnea, admitted with a spontaneous tension pneumothorax of left side. Pt states she is feeling well today. Chest tube was clamped this morning around 7am, she has not had any shortness of breath, cough, racing heart beats since clamping of tube. Pt denies current chest pain, palpitations, shortness of breath, cough, calf pain , fever, chills, nausea, vomiting. - Constitutional Vitals: Temp Pulse Resp BP Pulse Ox 97.9 F 70 16 117/73 97 08/25/16 07:13 08/25/16 07:13 08/25/16 07:13 08/25/16 07:13 08/25/16 07:13 General appearance: Present: A&O X 3, pleasant, no acute distress, answers questions appropriately - Head Head exam: Present: atraumatic, normocephalic - Eye Eye exam: Present: PERRL, conjuntiva pink, sclera anicteric Pupils: Present: PERRL - Neck Neck exam general surgery: Present: supple, trachea midline. Absent: lymphadenopathy - Respiratory Respiratory exam: Present: CTAB. Absent: accessory muscle use, rales, rhonchi, wheezes - Cardiovascular Cardiovascular exam: Present: RRR, +S1, +S2. Absent: diastolic murmur, gallop, rubs, systolic murmur - GI/Abdominal GI/Abdominal exam: Present: normal bowel sounds, soft, no peritoneal signs. Absent: distended, tenderness - Extremities Exam Extremities exam: Present: warm, radial pulses palpable and symetrical. Absent : calf tenderness, cyanotic, pedal edema - Incison Incision: Present: clean and dry, intact Comments: left sided chest tube, C/D/I no air bubbles with coughing while unclamped - Neurological Exam Neurological exam: Present: CN II-XII intact, oriented X3, no focal deficits. Absent: pronater drift, facial droop, speech deficit - Skin Skin exam: Present: dry, intact Internal Medicine: Result - Labs CBC & Chem 7: 08/23/16 04:17 08/23/16 04:17 - ABG Interpretation ABG results: PT/INR, D-dimer PT 11.1 Seconds (9.4-12.1) 08/24/16 12:35 D-Dimer 633 ng/mLFEU (0-500) H 08/22/16 18:57 - Impressions Impressions Chest X-Ray 08/24/16 15:12 IMPRESSION: Interval placement of left pleural catheter, projecting over the left parahilar region, with near complete evacuation of left-sided pneumothorax. D/ / 08/24/2016 16:52:01 Asaf Robert MD / antony Interpreting Provider: Asaf Robert MD Consult Discharge Plan - Plan Referrals: Padilla Flannery DO [Primary Care Provider] - <Erick Keith - Last Filed: 08/25/16 20:02> Date of Encounter: 08/25/16 - Assessment and plan (1) Spontaneous tension pneumothorax Current Visit: Yes Status: Acute (2) Elevated d-dimer Current Visit: Yes Status: Acute (3) Tachycardia Current Visit: Yes Status: Acute (4) Anxiety about health Current Visit: Yes Status: Acute - Constitutional Vitals: Temp Pulse Resp BP Pulse Ox 98.3 F 85 18 123/87 98 08/25/16 15:13 08/25/16 15:13 08/25/16 15:13 08/25/16 15:13 08/25/16 15:13 Internal Medicine: Result - Labs CBC & Chem 7: 08/23/16 04:17 08/23/16 04:17 - ABG Interpretation ABG results: PT/INR, D-dimer PT 11.1 Seconds (9.4-12.1) 08/24/16 12:35 D-Dimer 633 ng/mLFEU (0-500) H 08/22/16 18:57 - Impressions Impressions Chest X-Ray 08/25/16 07:30 IMPRESSION: A small left-sided pneumothorax has increased in size since the prior exam. A small bore chest tube remains. D/ / 08/25/2016 12:23:54 Zhen Sagastume MD / Shaye Motley Interpreting Provider: Zhen Sagastume MD - Attending Attestation I examined this patient and my medical decision-making was reviewed with the Resident Physician on 08/25/16. I agree with the documented findings, disposition and treatment plan as described except to the extent set forth below. Ms. Hood is currently admitted for acute spontaneous tension PTX. She remains moderate risk due to potential respiratory complications. Ms. Hood is doing OK but is feeling scared. No pain. No dyspnea. Exam Alert. Heart reg Lungs clear No edema I/P 1. PTX Further diagnoses and plan as above.
--- NOTE | 2016-08-25 09:18 | Pulmonology Progress Note ---
Date of Encounter: 08/25/16 Time of Encounter: 11:17 Assessment and Plan (1) Pneumothorax Current Visit: Yes Status: Acute Spontaneous [idiopathic] pneumothorax No early today when examined. Recommend clamp trial today and repeat chest x- ray around noon if no change likely DC chest tube and patient can be discharged later in the day She can follow-up in the outpatient pulmonary clinic for possibility of high- resolution CT scan for underlying evaluation of lung parenchyma for a positional cause that was not clearly evident on CTA performed during this hospitalization Qualifiers: Pneumothorax type: spontaneous, tension Qualified Code(s): J93.0 - Spontaneous tension pneumothorax Subjective Principal diagnosis: PTX Interval history: Smallbore chest tube placed yesterday with resolution of pneumothorax. She is feels a little bit of pain at the insertion site otherwise no difficulty with breathing Objective PUL Vital signs: Last Vital Signs Temp 97.9 F 08/25/16 07:13 Pulse 70 08/25/16 07:13 Resp 16 08/25/16 07:13 BP 117/73 08/25/16 07:13 Pulse Ox 97 08/25/16 07:13 General appearance: no acute distress ENT: oropharynx moist Neck: supple Effort: normal Auscultation: bilateral: clear Cardiovascular: regular rate and rhythm Extremities: no edema normal mental status, non-focal exam Results - Laboratory Findings CBC and BMP: 08/23/16 04:17 08/23/16 04:17 PT/INR, D-dimer PT 11.1 Seconds (9.4-12.1) 08/24/16 12:35 D-Dimer 633 ng/mLFEU (0-500) H 08/22/16 18:57 Abnormal lab findings: Abnormal lab results MCH 27.1 pg (28.0-33.3) L 08/23/16 04:17 D-Dimer 633 ng/mLFEU (0-500) H 08/22/16 18:57 Potassium 3.4 mEq/L (3.5-4.5) L 08/23/16 04:17 Glucose 102 mg/dL (70-99) H 08/23/16 04:17 POC Glucose 98 (58-89) H 08/22/16 21:23 Calcium 8.4 mg/dL (8.6-10.8) L 08/23/16 04:17 - Diagnostic Findings Chest x-ray: report reviewed, image reviewed - Clinical Findings Intake & Output: Intake & Output 08/24/16 08/25/16 08/25/16 23:59 07:59 15:59 Intake Total 0 / 0 0 / 0 Output Total 200 / 200 0 / 0 Balance -200 / -200 0 / 0 Weight 68.7 kg Consult Discharge Plan - Plan Referrals: Padilla Flannery DO [Primary Care Provider] -
[2016-08-25] MEDS: SPRINTEC PO SCH (09:25)
--- NOTE | 2016-08-25 09:31 | Discharge Summary ---
<Marybeth Vidales - Last Filed: 08/29/16 11:42> Date of Encounter: 08/29/16 Time of Encounter: 09:00 - Discharge Diagnosis (1) Spontaneous tension pneumothorax Priority: Primary Status: Acute (2) Pneumothorax Priority: Secondary Status: Acute Qualifiers: Pneumothorax type: spontaneous, tension Qualified Code(s): J93.0 - Spontaneous tension pneumothorax (3) Elevated d-dimer Priority: Secondary Status: Acute (4) control Priority: Secondary Status: Acute Qualifiers: Contraceptive encounter type: surveillance Contraceptive type: pill Qualified Code(s): Z30.41 - Encounter for surveillance of contraceptive pills (5) Tachycardia Priority: Secondary Status: Acute (6) DVT prophylaxis Priority: Secondary Status: Acute - Discharge Medications Home Medications: Norgestimate-Ethinyl Estradiol [Sprintec 28 Day Tablet] 1 each PO DAILY [History] Allergies/Adverse Reactions: Allergies Penicillins Allergy (Verified 08/22/16 18:26) Hives Procedures/tests Complete & Pending: Procedures Performed prior 72 hours Category Date Time Status CTA chest [CT angio chest] [CT] Routine Cat Scan 08/23/16 11:00 Completed IR thoracentesis w tube [IR] Routine IR 08/24/16 Taken Date of admission: 08/23/16 00:54 Primary care physician: Jadiel Crane Consults: 08/23/16 14:00 Consult to Pulmonology [CONS] Routine Consulting Provider: [facility] [place] Reason for Consult: Spontaneous tension pneumothorax - unsure of etiology Call Completed: Yes 08/24/16 11:56 Consult to Interventional Radiology [CONS] Stat Consulting Provider: Radiology Interventional [place] Reason for Consult: tension pneumo, unresolved Call Completed: Yes Discharging clinician: Marybeth Vidales Anticipated date of discharge: 08/29/16 - Patient Status Disposition: Home, Self-Care Condition: Good Functional capacity at discharge: independent ambulation Overall status at discharge: patient is progressing back to baseline - Ambulatory Orders Ambulatory Orders: XR chest 2V [XR] Time Frame: 09/12/16, Facility: [facility], Location: Lab - Discharge Instructions Follow Up With: Flavio Rey MD [Partnered Physician] - (APPT MADE BY PATIENT) Padilla Flannery DO [Primary Care Provider] - 09/03/16 12:00 pm Additional Instructions: follow up with Dr. Flavio Rey in 2 weeks Repeat chest Xray September 12, 2016 may return to work and physical activity after cleared by Dr. Rey - Diet and Activity Activity: increase activity as tolerated, return to work once cleared by your PCP/specialist Diet: advance to your usual diet Interval History: 40 yo F presented with acute onset conversational dyspnea, -PE workup in ER, pt admitted for left tension pneumothorax. Left Chest tube placed, pt was placed on wall suction. Surgery consulted. CXR and CT imaging completed indicating improvement of pneumothorax. Upon removal of chest tube and repeat CXR pneumothorax increase in size by 28 to 35mm. Pulmonology consulted. Pt had new chest tube placed by IR for worsening pneumothorax. With second chest tube pt placed. Cardiothoracic surgery consulted. Was on wall suction overnight, to waterseal for 24hours, then to hemlick valve for 24 hrs. Repeated CXR with minimal residual apical pneumothorax, approximately 7mm. Pt stable for discharge and follow up with Dr. Rey in 2 weeks for further management of chest tube. Hospital course: Ms. Hood is a 40 year old female - Time Spent with Patient Total time spent providing and/or coordinating discharge services: Less than 30 minutes Specific discharge activities: off work until cleared by cardiothoracic surgeon , Dr. Rey - Constitutional Vitals: Temp Pulse Resp BP Pulse Ox 97.9 F 70 16 117/73 97 08/25/16 07:13 08/25/16 07:13 08/25/16 07:13 08/25/16 07:13 08/25/16 07:13 General appearance: Present: A&O X 3, pleasant, no acute distress, answers questions appropriately - Head Head exam: Present: atraumatic, normocephalic - Eye Eye exam: Present: PERRL, conjuntiva pink, sclera anicteric Pupils: Present: PERRL - Neck Neck exam general surgery: Present: supple, trachea midline. Absent: lymphadenopathy - Respiratory Respiratory exam: Present: CTAB. Absent: accessory muscle use, rales, rhonchi, wheezes - Cardiovascular Cardiovascular exam: Present: RRR, +S1, +S2. Absent: diastolic murmur, gallop, rubs, systolic murmur - GI/Abdominal GI/Abdominal exam: Present: normal bowel sounds, soft, no peritoneal signs. Absent: distended, tenderness - Extremities Exam Extremities exam: Present: warm, radial pulses palpable and symetrical. Absent : calf tenderness, cyanotic, pedal edema - Incison Comments: L sided chest tube with hemlick valve C/D/I - Neurological Exam Neurological exam: Present: CN II-XII intact, oriented X3, no focal deficits. Absent: pronater drift, facial droop, speech deficit - Skin Skin exam: Present: dry, intact <SagarErick A - Last Filed: 08/29/16 12:15> Date of Encounter: 08/29/16 - Discharge Diagnosis (1) Spontaneous tension pneumothorax Status: Acute (2) Elevated d-dimer Status: Acute (3) Tachycardia Status: Acute (4) Anxiety about health Priority: Secondary Status: Acute Date of admission: 08/23/16 00:54 Primary care physician: Jadiel Crane Consults: 08/23/16 14:00 Consult to Pulmonology [CONS] Routine Consulting Provider: [facility] [place] Reason for Consult: Spontaneous tension pneumothorax - unsure of etiology Call Completed: Yes 08/24/16 11:56 Consult to Interventional Radiology [CONS] Stat Consulting Provider: Radiology Interventional [facility] Reason for Consult: tension pneumo, unresolved Call Completed: Yes 08/27/16 12:56 Consult to Cardiothoracic Surgery [CONS] Routine Consulting Provider: Cardiothoracic Surgery [place] Reason for Consult: pneumothorax Call Completed: Yes Hospital course: Ms. Hood is a 40 year old female - Time Spent with Patient Total time spent providing and/or coordinating discharge services: 28min - Constitutional Vitals: Temp Pulse Resp BP Pulse Ox 98 F 90 16 116/74 97 08/29/16 07:18 08/29/16 07:18 08/29/16 07:18 08/29/16 07:18 08/29/16 07:18 - Attending Attestation I examined this patient and my medical decision-making was reviewed with the Resident Physician on 08/29/16. I agree with the documented findings, disposition and treatment plan as described except to the extent set forth below. Ms. Hood feels OK today. No pain or dyspnea. Slept OK. Ready for discharge home. Exam Alert. Comfortable Heart reg No wheeze Plan D/C home today Follow up [address] Rey.
--- NOTE | 2016-08-25 12:41 | Event Note ---
Date of Encounter: 08/25/16 Time of Encounter: 12:41 Repeat chest x-ray on [facility] reviewed small pneumothorax has reemerged would place chest tube back to wall suction overnight we will reevaluate in the morning
--- NOTE | 2016-08-26 08:20 | Pulmonology Progress Note ---
Date of Encounter: 08/26/16 Time of Encounter: 08: Assessment and Plan (1) Pneumothorax Current Visit: Yes Status: Acute Spontaneous [idiopathic] pneumothorax No air leak today when examined. Recommend placed to waterseal with chest x-ray If no residual pneumothorax can likely proceed to clamp trial later in the day Given the delay in resolution and young age would consider cardiothoracic surgery consult if pneumothorax is not resolved over the course of today. She can follow-up in the outpatient pulmonary clinic for possibility of high- resolution CT scan for underlying evaluation of lung parenchyma for a positional cause that was not clearly evident on CTA performed during this hospitalization Qualifiers: Pneumothorax type: spontaneous, tension Qualified Code(s): J93.0 - Spontaneous tension pneumothorax Subjective Principal diagnosis: PTX Interval history: She says she feels about the same. No issues overnight with hypoxia or difficulty breathing. Clearly the strain of persistent hospitalization is affecting her psychologically Objective PUL Vital signs: Last Vital Signs Temp 98.3 F 08/26/16 06:58 Pulse 80 08/26/16 06:58 Resp 16 08/26/16 06:58 BP 116/71 08/26/16 06:58 Pulse Ox 98 08/26/16 06:58 General appearance: no acute distress Eyes: nonicteric ENT: oropharynx moist Auscultation: bilateral: clear Cardiovascular: regular rate and rhythm anxious Results - Laboratory Findings CBC and BMP: 08/23/16 04:17 08/23/16 04:17 PT/INR, D-dimer PT 11.1 Seconds (9.4-12.1) 08/24/16 12:35 D-Dimer 633 ng/mLFEU (0-500) H 08/22/16 18:57 Abnormal lab findings: Abnormal lab results MCH 27.1 pg (28.0-33.3) L 08/23/16 04:17 D-Dimer 633 ng/mLFEU (0-500) H 08/22/16 18:57 Potassium 3.4 mEq/L (3.5-4.5) L 08/23/16 04:17 Glucose 102 mg/dL (70-99) H 08/23/16 04:17 POC Glucose 98 (58-89) H 08/22/16 21:23 Calcium 8.4 mg/dL (8.6-10.8) L 08/23/16 04:17 - Clinical Findings Intake & Output: Intake & Output 08/25/16 08/26/16 08/26/16 23:59 07:59 15:59 Output Total 375 / 375 600 / 600 Balance -375 / -375 -600 / -600 Weight 67.8 kg Consult Discharge Plan - Plan Referrals: Padilla Flannery DO [Primary Care Provider] -
[2016-08-26] MEDS: SPRINTEC PO SCH (08:29)
--- NOTE | 2016-08-26 08:29 | Internal Med Progress Note ---
<Sobeida,Lauren Nolvia - Last Filed: 08/26/16 08:41> Date of Encounter: 08/26/16 Time of Encounter: 08:25 - Assessment and plan (1) Spontaneous tension pneumothorax Current Visit: Yes Status: Acute Assessment and plan: pt with unknown cause of spontaneous tension pneumothorax CT scan with large left sided pneumothorax 98%saturation on room air supplemental oxygen pulmonology recommendations 08/25 chest tube clamped this morning, repeat CXR at noon today increase ambulation out of room and in hallways 08/26 repeat CXR with residual pneumothorax chest tube back to suction over night CXR at 7am with trace apical pneumothorax remaining set to waterseal repeat CXR later today pulmonology following (2) Pneumothorax Current Visit: Yes Status: Acute Qualifiers: Pneumothorax type: spontaneous, tension Qualified Code(s): J93.0 - Spontaneous tension pneumothorax (3) Elevated d-dimer Current Visit: Yes Status: Acute Assessment and plan: ddimer 633 recently started on oral contraceptives CTA - for PE (4) control Current Visit: Yes Status: Acute Assessment and plan: started recently by her OBgyn for uterine bleeding not recommended for pts >35 ddimer elevated 633 will get CTA chest follow up with OBgyn Qualifiers: Contraceptive encounter type: surveillance Contraceptive type: pill Qualified Code(s): Z30.41 - Encounter for surveillance of contraceptive pills (5) Tachycardia Current Visit: Yes Status: Acute Assessment and plan: resolved (6) DVT prophylaxis Current Visit: Yes Status: Acute Assessment and plan: SQ heparin - Subjective Interval history: 40 yo F presented with severe conversational dyspnea, admitted with a spontaneous tension pneumothorax of left side. Pt states she is feeling well today. Chest tube back on suction overnight, set to waterseal this morning she has not had any shortness of breath, cough, racing heart beats this morning. Pt denies current chest pain, palpitations, shortness of breath, cough, calf pain , fever, chills, nausea, vomiting. - Constitutional Vitals: Temp Pulse Resp BP Pulse Ox 98.3 F 80 16 116/71 98 08/26/16 06:58 08/26/16 06:58 08/26/16 06:58 08/26/16 06:58 08/26/16 06:58 General appearance: Present: A&O X 3, pleasant, no acute distress, answers questions appropriately - Head Head exam: Present: atraumatic, normocephalic - Eye Eye exam: Present: PERRL, conjuntiva pink, sclera anicteric Pupils: Present: PERRL - Neck Neck exam general surgery: Present: supple, trachea midline. Absent: lymphadenopathy - Respiratory Respiratory exam: Present: CTAB. Absent: accessory muscle use, rales, rhonchi, wheezes - Cardiovascular Cardiovascular exam: Present: RRR, +S1, +S2. Absent: diastolic murmur, gallop, rubs, systolic murmur - GI/Abdominal GI/Abdominal exam: Present: normal bowel sounds, soft, no peritoneal signs. Absent: distended, tenderness - Extremities Exam Extremities exam: Present: warm, radial pulses palpable and symetrical. Absent : calf tenderness, cyanotic, pedal edema - Neurological Exam Neurological exam: Present: CN II-XII intact, oriented X3, no focal deficits. Absent: pronater drift, facial droop, speech deficit - Psychiatric Additional comments: mild anxiety and frustration over being in the hospital for several days - Skin Skin exam: Present: dry, intact Internal Medicine: Result - Labs CBC & Chem 7: 08/23/16 04:17 08/23/16 04:17 - ABG Interpretation ABG results: PT/INR, D-dimer PT 11.1 Seconds (9.4-12.1) 08/24/16 12:35 D-Dimer 633 ng/mLFEU (0-500) H 08/22/16 18:57 - Impressions Impressions Chest X-Ray 08/25/16 07:30 IMPRESSION: A small left-sided pneumothorax has increased in size since the prior exam. A small bore chest tube remains. D/ / 08/25/2016 12:23:54 Zhen Sagastume MD / Shaye Motley Interpreting Provider: Zhen Sagastume MD Chest X-Ray 08/26/16 07:34 IMPRESSION: 1. Left pleural catheter appears unchanged in position. 2. A trace left apical pneumothorax is seen. 3. No focal consolidation. D/ / Ever Vidal MD / Ever Vidal MD Interpreting Provider: Ever Vidal MD Consult Discharge Plan - Plan Referrals: Padilla Flannery DO [Primary Care Provider] - <Erick Keith - Last Filed: 08/26/16 18:59> Date of Encounter: 08/26/16 - Assessment and plan (1) Spontaneous tension pneumothorax Current Visit: Yes Status: Acute (2) Elevated d-dimer Current Visit: Yes Status: Acute (3) Tachycardia Current Visit: Yes Status: Acute (4) Anxiety about health Current Visit: Yes Status: Acute - Constitutional Vitals: Temp Pulse Resp BP Pulse Ox 98.2 F 82 16 103/97 100 08/26/16 15:43 08/26/16 15:43 08/26/16 15:43 08/26/16 15:43 08/26/16 15:43 Internal Medicine: Result - Labs CBC & Chem 7: 08/23/16 04:17 08/23/16 04:17 - ABG Interpretation ABG results: PT/INR, D-dimer PT 11.1 Seconds (9.4-12.1) 08/24/16 12:35 D-Dimer 633 ng/mLFEU (0-500) H 08/22/16 18:57 - Impressions Impressions Chest X-Ray 08/26/16 07:34 IMPRESSION: 1. Left pleural catheter appears unchanged in position. 2. A trace left apical pneumothorax is seen. 3. No focal consolidation. D/ / Ever Vidal MD / Ever Vidal MD Interpreting Provider: Ever Vidal MD - Attending Attestation I examined this patient and my medical decision-making was reviewed with the Resident Physician on 08/26/16. I agree with the documented findings, disposition and treatment plan as described except to the extent set forth below. Ms. Hood is currently admitted for acute tension PTX. She is moderate to high risk due to potential for worsening symptoms. Ms. Hood is up and walking in glass. Chest tube is to water seal. No pain or new symptoms. Exam ALert. Comfortable Heart reg Lungs clear I/P 1. PTX Further diagnoses and plan as above.
--- NOTE | 2016-08-27 08:52 | Internal Med Progress Note ---
Date of Encounter: 08/27/16 - Constitutional Vitals: Temp Pulse Resp BP Pulse Ox 98.1 F 71 16 114/72 98 08/27/16 07:17 08/27/16 07:17 08/27/16 07:17 08/27/16 07:17 08/27/16 07:17 General appearance: Present: A&O X 3, pleasant, no acute distress, answers questions appropriately Internal Medicine: Result - Labs CBC & Chem 7: 08/23/16 04:17 08/23/16 04:17 - ABG Interpretation ABG results: PT/INR, D-dimer PT 11.1 Seconds (9.4-12.1) 08/24/16 12:35 D-Dimer 633 ng/mLFEU (0-500) H 08/22/16 18:57 - Impressions Impressions Chest X-Ray 08/27/16 08:06 IMPRESSION: Unchanged position of left thoracostomy tube. Tiny left apical pneumothorax is slightly decreased from prior examination. D/ / Tahir Tobar MD / Tahir Tobar MD Interpreting Provider: Tahir Tobar MD Consult Discharge Plan - Plan Referrals: Padilla Flannery DO [Primary Care Provider] -
[2016-08-27] MEDS: SPRINTEC PO SCH (09:59)
--- NOTE | 2016-08-27 10:58 | Pulmonology Progress Note ---
<Bruno Anglin - Last Filed: 08/27/16 12:52> Date of Encounter: 08/27/16 Time of Encounter: 10:55 Assessment and Plan (1) Spontaneous tension pneumothorax Current Visit: Yes Status: Acute 40F admitted for left spontaneous tension pneumothorax. Patient states she was running two weeks ago when she started having pain on the left side suddenly. She thought it was a muscle strain and treated it with stretching exercising. However, patient started having pressure and sob with progressively worsened. She was found to have spontaneous pneumonthorax. First time with pneumothorax Patient has a Chest tube to water seal. CXR this morning continues to shows residual left apical pneumothorax slightly smaller than yesterday. Plan: Patient continues to have residual left apical pneumothorax. Since admission pneumothorax has not completely resolved. Will obtain CT surgery consult. Subjective Principal diagnosis: PTX Interval history: Patient denies sob, cough, chest pain, wheezing. Objective PUL Vital signs: Last Vital Signs Temp 98.1 F 08/27/16 07:17 Pulse 71 08/27/16 07:17 Resp 16 08/27/16 07:17 BP 114/72 08/27/16 07:17 Pulse Ox 98 08/27/16 07:17 General appearance: other (anxious) Effort: normal Auscultation: bilateral: clear Cardiovascular: regular rate and rhythm Gastrointestinal: normoactive bowel sounds, non-distended Integumentary: normal Extremities: no cyanosis, no edema, no clubbing, pulses normal Results - Laboratory Findings CBC and BMP: 08/23/16 04:17 08/23/16 04:17 PT/INR, D-dimer PT 11.1 Seconds (9.4-12.1) 08/24/16 12:35 D-Dimer 633 ng/mLFEU (0-500) H 08/22/16 18:57 Abnormal lab findings: Abnormal lab results MCH 27.1 pg (28.0-33.3) L 08/23/16 04:17 D-Dimer 633 ng/mLFEU (0-500) H 08/22/16 18:57 Potassium 3.4 mEq/L (3.5-4.5) L 08/23/16 04:17 Glucose 102 mg/dL (70-99) H 08/23/16 04:17 POC Glucose 98 (58-89) H 08/22/16 21:23 Calcium 8.4 mg/dL (8.6-10.8) L 08/23/16 04:17 - Clinical Findings Intake & Output: Intake & Output 08/26/16 08/27/16 08/27/16 23:59 07:59 15:59 Intake Total 220 / 220 Output Total 250 / 250 400 / 400 0 / 0 Balance -250 / -250 -400 / -400 220 / 220 Weight 67.5 kg Consult Discharge Plan - Plan Referrals: Padilla Flannery DO [Primary Care Provider] - 09/03/16 12:00 pm <Eva Sexton - Last Filed: 08/27/16 17:18> Date of Encounter: 08/27/16 Objective PUL Vital signs: Last Vital Signs Temp 98.2 F 08/27/16 10:59 Pulse 79 08/27/16 15:15 Resp 16 08/27/16 15:15 BP 113/79 08/27/16 15:15 Pulse Ox 100 08/27/16 15:15 Results - Laboratory Findings CBC and BMP: 08/23/16 04:17 08/23/16 04:17 PT/INR, D-dimer PT 11.1 Seconds (9.4-12.1) 08/24/16 12:35 D-Dimer 633 ng/mLFEU (0-500) H 08/22/16 18:57 Abnormal lab findings: Abnormal lab results MCH 27.1 pg (28.0-33.3) L 08/23/16 04:17 D-Dimer 633 ng/mLFEU (0-500) H 08/22/16 18:57 Potassium 3.4 mEq/L (3.5-4.5) L 08/23/16 04:17 Glucose 102 mg/dL (70-99) H 08/23/16 04:17 POC Glucose 98 (58-89) H 08/22/16 21:23 Calcium 8.4 mg/dL (8.6-10.8) L 08/23/16 04:17 - Clinical Findings Intake & Output: Intake & Output 08/27/16 08/27/16 08/27/16 07:59 15:59 23:59 Intake Total 220 / 220 Output Total 400 / 400 500 / 500 Balance -400 / -400 -280 / -280 Weight 67.5 kg - Attending Attestation I examined this patient and my medical decision-making was reviewed with the BRAND ENGINEER/PA/Advanced Practice Nurse/Resident Physician. I agree with the documented findings, disposition and treatment plan as described except to the extent set forth below. Patient seen and examined. Labs, radiology, chart personally reviewed. 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 I have tried clamping chest to and then a follow-up chest x-ray showed worsening of her pneumothorax and chest tube unclamped again and placed it under suction with evidence of air leak however it was minor. This was discussed with Dr. Rey and appreciate his help and input. Cardiovascular: stable
--- NOTE | 2016-08-27 13:06 | Internal Med Progress Note ---
<Sobeida,Lauren Nolvia - Last Filed: 08/27/16 13:04> Date of Encounter: 08/27/16 Time of Encounter: 13:04 - Assessment and plan (1) Spontaneous tension pneumothorax Current Visit: Yes Status: Acute Assessment and plan: pt with unknown cause of spontaneous tension pneumothorax CT scan with large left sided pneumothorax 98%saturation on room air supplemental oxygen pulmonology recommendations 08/25 chest tube clamped this morning, repeat CXR at noon today increase ambulation out of room and in hallways 08/26 repeat CXR with residual pneumothorax chest tube back to suction over night CXR at 7am with trace apical pneumothorax remaining set to waterseal repeat CXR later today pulmonology following 08/27 CXR today with small residual apical pneumothorax, continues to improve pulmonology following (2) Pneumothorax Current Visit: Yes Status: Acute Qualifiers: Pneumothorax type: spontaneous, tension Qualified Code(s): J93.0 - Spontaneous tension pneumothorax (3) Elevated d-dimer Current Visit: Yes Status: Acute Assessment and plan: ddimer 633 recently started on oral contraceptives CTA - for PE (4) control Current Visit: Yes Status: Acute Assessment and plan: started recently by her OBgyn for uterine bleeding not recommended for pts >35 ddimer elevated 633 will get CTA chest follow up with OBgyn Qualifiers: Contraceptive encounter type: surveillance Contraceptive type: pill Qualified Code(s): Z30.41 - Encounter for surveillance of contraceptive pills (5) Tachycardia Current Visit: Yes Status: Acute Assessment and plan: resolved (6) DVT prophylaxis Current Visit: Yes Status: Acute Assessment and plan: ambulation - Subjective Interval history: 40 yo F presented with severe conversational dyspnea, admitted with a spontaneous tension pneumothorax of left side. Pt states she is feeling well today. Chest tube set to waterseal she has not had any shortness of breath, cough, racing heart beats this morning. Pt denies current chest pain, palpitations, shortness of breath, cough, calf pain, fever, chills, nausea, vomiting. - Constitutional Vitals: Temp Pulse Resp BP Pulse Ox 98.2 F 92 16 112/84 99 08/27/16 10:59 08/27/16 10:59 08/27/16 10:59 08/27/16 10:59 08/27/16 10:59 General appearance: Present: A&O X 3, pleasant, no acute distress, answers questions appropriately - Head Head exam: Present: atraumatic, normocephalic - Eye Eye exam: Present: PERRL, conjuntiva pink, sclera anicteric Pupils: Present: PERRL - Neck Neck exam general surgery: Present: supple, trachea midline. Absent: lymphadenopathy - Respiratory Respiratory exam: Present: CTAB. Absent: accessory muscle use, rales, rhonchi, wheezes - Cardiovascular Cardiovascular exam: Present: RRR, +S1, +S2. Absent: diastolic murmur, gallop, rubs, systolic murmur - GI/Abdominal GI/Abdominal exam: Present: normal bowel sounds, soft, no peritoneal signs. Absent: distended, tenderness - Extremities Exam Extremities exam: Present: warm, radial pulses palpable and symetrical. Absent : calf tenderness, cyanotic, pedal edema - Neurological Exam Neurological exam: Present: CN II-XII intact, oriented X3, no focal deficits. Absent: pronater drift, facial droop, speech deficit - Skin Skin exam: Present: dry, intact Internal Medicine: Result - Labs CBC & Chem 7: 08/23/16 04:17 08/23/16 04:17 - ABG Interpretation ABG results: PT/INR, D-dimer PT 11.1 Seconds (9.4-12.1) 08/24/16 12:35 D-Dimer 633 ng/mLFEU (0-500) H 08/22/16 18:57 - Impressions Impressions Chest X-Ray 08/27/16 08:06 IMPRESSION: Unchanged position of left thoracostomy tube. Tiny left apical pneumothorax is slightly decreased from prior examination. D/ / Tahir Tobar MD / Tahir Tobar MD Interpreting Provider: Tahir Tobar MD Consult Discharge Plan - Plan Referrals: Padilla Flannery DO [Primary Care Provider] - 09/03/16 12:00 pm <Erick Keith - Last Filed: 08/27/16 19:29> Date of Encounter: 08/27/16 - Assessment and plan (1) Spontaneous tension pneumothorax Current Visit: Yes Status: Acute (2) Elevated d-dimer Current Visit: Yes Status: Acute (3) Tachycardia Current Visit: Yes Status: Acute (4) Anxiety about health Current Visit: Yes Status: Acute - Constitutional Vitals: Temp Pulse Resp BP Pulse Ox 98.3 F 87 16 116/66 100 08/27/16 19:00 08/27/16 19:00 08/27/16 19:00 08/27/16 19:00 08/27/16 19:00 Internal Medicine: Result - Labs CBC & Chem 7: 08/23/16 04:17 08/23/16 04:17 - ABG Interpretation ABG results: PT/INR, D-dimer PT 11.1 Seconds (9.4-12.1) 08/24/16 12:35 D-Dimer 633 ng/mLFEU (0-500) H 08/22/16 18:57 - Impressions Impressions Chest X-Ray 08/27/16 08:06 IMPRESSION: Unchanged position of left thoracostomy tube. Tiny left apical pneumothorax is slightly decreased from prior examination. D/ / Tahir Tobar MD / Tahir Tobar MD Interpreting Provider: Tahir Tobar MD Chest X-Ray 08/27/16 14:15 IMPRESSION: Slight interval increase in size of a now 5% left apical pneumothorax status post chest tube clamping. D/ / 08/27/2016 15:06:41 Kody Baez MD / don Interpreting Provider: Kody Baez MD - Attending Attestation I examined this patient and my medical decision-making was reviewed with the Resident Physician on 08/27/16. I agree with the documented findings, disposition and treatment plan as described except to the extent set forth below. Ms Hood is currently admitted for acute PTX. She remains moderate to high risk due to potential for worsening resp symptoms. Ms Hood is up and walking. Her CT is being managed by pulm and CT surgery. She denies pain or SOB. No GI symptoms or fever. Exam Alert. Comfortable Up and walking No edema No dyspnea I/P 1. PTX 2. Anxiety Further diagnoses and plan as above.
--- NOTE | 2016-08-27 14:21 | Cardiothoracic Consult Note ---
Date of Encounter: 08/27/16 Time of Encounter: 14:17 Assessment and Plan (1) Spontaneous tension pneumothorax Current Visit: Yes Status: Acute The assessment and plan as outlined above was discussed with the patient and/or family members who expressed understanding and agreement. All questions were answered. The patient is due to have a chest x-ray this afternoon. If this looks unchanged , I feel that the chest tube can be removed. The other option would be to place a Heimlich valve. However, I feel this is unnecessary. I can see the patient in the office in 1-2 weeks with a chest x-ray to follow-up. If she were to have a second episode, surgery might be recommended at that time. - History of Present Illness Consult date: 08/27/16 History of present illness: Ms. Hood is a 40 year old female History of present illness. The patient is a 40-year-old female who presented with shortness of breath and dyspnea. She was found to have a pneumothorax and the patient had a chest tube placed in the emergency room. The shortness of breath and occurred while running. No previous history of pneumothorax on either side. She did have a CT scan of her chest. This revealed no blebs. Presently, the chest tube is on waterseal. I do not see an air leak. Chest x- ray done this morning reveals a tiny pneumothorax which is somewhat improved. Past medical history. The patient has been healthy. Her only medications include control pills. She is allergic to penicillin. Social history. She lives in [place] with her and 2 daughters. 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 She does not smoke and has no secondhand smoke exposure. Rarely drinks alcohol. Family history is positive for lung disease, including asthma. No history of spontaneous pneumothorax. Review of systems is otherwise negative. Past Med Surg Social Fam HX - Past Medical History Medical history: no medical history Psychiatric history: no psych history - Past Surgical History Surgical History: other - Social History Smoking Status: Never smoker Smokeless Tobacco Status: No Alcohol use: occasionally Drug use: none - Family History Father Name: alfredo sullivan Age: 64 Living Status: Still Living Hx Family Cardiac Disorders: No Hx Family Respiratory Disorders: No Hx Family Cancer: Yes (skin cancer) Hx Family GI Disorders: Yes (stomach ulcers) Hx Family Genitourinary Disorders: No Hx Family Endocrine Disorder: No Hx Family Musculoskeletal Disorders: No Hx Family Neuromuscular Disorders: No Hx Family Neurologic Disorders: No Hx Family HEENT Disorders: No Hx Family Autoimmune Disorders: No Hx Family Reproductive Disorders: No Hx Family Psychosocial Disorders: No Hx Family Medical Disorders: No Medications and Allergies Norgestimate-Ethinyl Estradiol [Sprintec 28 Day Tablet] 1 each PO DAILY [History] Allergies Penicillins Allergy (Verified 08/22/16 18:26) Hives All Systems Review: A 10-system review of systems was performed and is negative for pertinent findings except as documented above in the HPI. Physical Examination Vital Signs, Last 4 Hours Temp Pulse Resp BP Pulse Ox 08/27/16 10:59 98.2 F 92 16 112/84 99 Lungs are clear to percussion and auscultation. The chest tube has no air leak and minimal drainage. General: Conversant, No Apparent Distress, Well developed, Well nourished HEENT: Atraumatic, Normocephaly, Trachea midline Neck: No JVD, Normal carotid pulses Cardiac: Reg Rate and Rhythm, Normal S1 and S2, No Murmur Lungs: Normal Breath Sounds Neuro: Alert and responsive, No focal deficits noted, Cranial nerves intact, Motor nerves intact, Sensory nerves intact Vascular: Normal capillary refill Abdomen: Soft, Non-tender Skin: No rashes noted on visualized skin Musculoskeletal: No Chest Wall Tenderness Extremities: No Clubbing, No Cyanosis, No Edema, Normal Pulses Results 08/23/16 04:17 08/23/16 04:17 Consult Discharge Plan - Plan Referrals: Padilla Flannery DO [Primary Care Provider] -
--- NOTE | 2016-08-27 15:17 | Event Note ---
<Bruno Anglin Nixoncornelio - Last Filed: 08/27/16 15:15> Date of Encounter: 08/27/16 Time of Encounter: 15:15 Patient's chest tube was clamped this morning and repeat chest x-ray was ordered at 2 PM. Repeat chest x-ray showed worsening of her left apical pneumothorax. Her chest was water-sealed and started on suction. She is started on oxygen. Chest x-ray is ordered for 6 PM tonight and also for tomorrow morning. <Eva Sexton - Last Filed: 08/27/16 17:24> Date of Encounter: 08/27/16 Reviewed CXR with radiologist and discussed with Dr. Rey.
--- NOTE | 2016-08-28 07:29 | Cardiothoracic Progress Note ---
Date of Encounter: 08/28/16 Time of Encounter: 07:27 - Assessment and plan (1) Spontaneous tension pneumothorax Current Visit: Yes Status: Acute I disconnected the Pleur-evac and placed a Heimlich valve. We will check a chest x-ray tomorrow morning. - Subjective Interval history: The patient has no complaints. She is anxious to get home tomorrow for her daughter's birthday. Vital Signs, Last 4 Hours Temp Pulse Resp BP Pulse Ox 08/28/16 07:19 78 16 119/72 97 08/28/16 04:46 97.6 F 73 16 110/77 100 Oxgyen Flow Rate Oxygen Flow Rate (LPM) 3 Clinical Data, last 8 Hours Output, Chest Tube Drainage 0 Amount [Left Upper Anterior Chest #1] Output, Urine Amount 1,000 Weight 08/26/16 08/27/16 08/28/16 23:59 23:59 23:59 Weight 67.8 kg 67.5 kg 66.9 kg Lungs are clear to percussion and auscultation. The chest tube has no visible air leak and minimal drainage. Chest x-ray reveals a tiny, improved apical pneumothorax. - Labs 08/23/16 04:17 08/23/16 04:17 Consult Discharge Plan - Plan Referrals: Padilla Flannery DO [Primary Care Provider] - 09/03/16 12:00 pm
--- NOTE | 2016-08-28 08:49 | Pulmonology Progress Note ---
<Bruno Anglin - Last Filed: 08/28/16 08:47> Date of Encounter: 08/28/16 Time of Encounter: 08:47 Assessment and Plan (1) Spontaneous tension pneumothorax Current Visit: Yes Status: Acute Yesterday patient's chest tube was clamped and she was reimaged in the afternoon showing expansion of the left apical pneumothorax. Thereafter she was put on water seal, wall suction and oxygen via nasal cannula. Repeat chest x-ray this morning showed reduction in the left apical pneumothorax. Patient now has a Heimlich valve Repeat imaging this afternoon and tomorrow morning. Subjective Principal diagnosis: PTX Interval history: Patient denies sob, cough, chest pain, wheezing. Objective PUL Vital signs: Last Vital Signs Temp 97.6 F 08/28/16 04:46 Pulse 78 08/28/16 07:19 Resp 16 08/28/16 07:19 BP 119/72 08/28/16 07:19 Pulse Ox 97 08/28/16 07:19 General appearance: no acute distress Eyes: nonicteric ENT: oropharynx moist Mallampati (class): 1 Neck: supple Effort: normal Auscultation: bilateral: clear Cardiovascular: regular rate and rhythm Gastrointestinal: normoactive bowel sounds, non-distended Integumentary: normal Extremities: no cyanosis, no edema, no clubbing Musculoskeletal: no deformities, ROM normal normal mental status, non-focal exam mood appropriate, affect normal Results - Laboratory Findings CBC and BMP: 08/23/16 04:17 08/23/16 04:17 PT/INR, D-dimer PT 11.1 Seconds (9.4-12.1) 08/24/16 12:35 D-Dimer 633 ng/mLFEU (0-500) H 08/22/16 18:57 Abnormal lab findings: Abnormal lab results MCH 27.1 pg (28.0-33.3) L 08/23/16 04:17 D-Dimer 633 ng/mLFEU (0-500) H 08/22/16 18:57 Potassium 3.4 mEq/L (3.5-4.5) L 08/23/16 04:17 Glucose 102 mg/dL (70-99) H 08/23/16 04:17 POC Glucose 98 (58-89) H 08/22/16 21:23 Calcium 8.4 mg/dL (8.6-10.8) L 08/23/16 04:17 - Clinical Findings Intake & Output: Intake & Output 08/27/16 08/28/16 08/28/16 23:59 07:59 15:59 Intake Total 200 / 200 Output Total 0 / 0 1000 / 1000 Balance 0 / 0 -800 / -800 Weight 66.9 kg Consult Discharge Plan - Plan Referrals: Padilla Flannery DO [Primary Care Provider] - 09/03/16 12:00 pm <Eva Sexton - Last Filed: 08/28/16 17:38> Date of Encounter: 08/28/16 Objective PUL Vital signs: Last Vital Signs Temp 98.3 F 08/28/16 16:15 Pulse 95 08/28/16 16:15 Resp 16 08/28/16 16:15 BP 108/71 08/28/16 16:15 Pulse Ox 100 08/28/16 16:15 Results - Laboratory Findings CBC and BMP: 08/23/16 04:17 08/23/16 04:17 PT/INR, D-dimer PT 11.1 Seconds (9.4-12.1) 08/24/16 12:35 D-Dimer 633 ng/mLFEU (0-500) H 08/22/16 18:57 Abnormal lab findings: Abnormal lab results MCH 27.1 pg (28.0-33.3) L 08/23/16 04:17 D-Dimer 633 ng/mLFEU (0-500) H 08/22/16 18:57 Potassium 3.4 mEq/L (3.5-4.5) L 08/23/16 04:17 Glucose 102 mg/dL (70-99) H 08/23/16 04:17 POC Glucose 98 (58-89) H 08/22/16 21:23 Calcium 8.4 mg/dL (8.6-10.8) L 08/23/16 04:17 - Clinical Findings Intake & Output: Intake & Output 08/28/16 08/28/16 08/28/16 07:59 15:59 23:59 Intake Total 200 / 200 600 / 600 Output Total 1000 / 1000 400 / 400 450 / 450 Balance -800 / -800 200 / 200 -450 / -450 Weight 66.9 kg - Attending Attestation I examined this patient and my medical decision-making was reviewed with the COUNTER CLERK TRACTOR PARTS/PA/Advanced Practice Nurse/Resident Physician. I agree with the documented findings, disposition and treatment plan as described except to the extent set forth below. Patient seen and examined. Labs, radiology, chart personally reviewed. 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 Discussed with Dr. Rey and we agreed about connecting chest tube with Heimlich valve and then I repeated chest x-ray with only slight change in the pneumothorax and patient remain clinically stable to follow-up chest x-ray in the morning and then would have more recommendation regarding either to remove chest tube or discharge at home with chest tube and follow-up as outpatient. Cardiovascular: stable I have seen patient 2 times today and she seems to be clinically stable and comfortable.
--- NOTE | 2016-08-28 11:23 | Internal Med Progress Note ---
<Marybeth Vidales - Last Filed: 08/28/16 11:20> Date of Encounter: 08/28/16 Time of Encounter: 11:21 - Assessment and plan (1) Spontaneous tension pneumothorax Current Visit: Yes Status: Acute Assessment and plan: pt with unknown cause of spontaneous tension pneumothorax CT scan with large left sided pneumothorax 98%saturation on room air supplemental oxygen pulmonology recommendations 08/25 chest tube clamped this morning, repeat CXR at noon today increase ambulation out of room and in hallways 08/26 repeat CXR with residual pneumothorax chest tube back to suction over night CXR at 7am with trace apical pneumothorax remaining set to waterseal repeat CXR later today pulmonology following 08/27 CXR today with small residual apical pneumothorax, continues to improve pulmonology following 08/28 cxr with improvement in residual pneumothorax pulmonology and CT surgery following chest tube to hemlich valve today supplemental O2 repeat CXR this afternoon (2) Pneumothorax Current Visit: Yes Status: Acute Qualifiers: Pneumothorax type: spontaneous, tension Qualified Code(s): J93.0 - Spontaneous tension pneumothorax (3) Elevated d-dimer Current Visit: Yes Status: Acute Assessment and plan: ddimer 633 recently started on oral contraceptives CTA - for PE (4) control Current Visit: Yes Status: Acute Assessment and plan: started recently by her OBgyn for uterine bleeding not recommended for pts >35 ddimer elevated 633 will get CTA chest follow up with OBgyn Qualifiers: Contraceptive encounter type: surveillance Contraceptive type: pill Qualified Code(s): Z30.41 - Encounter for surveillance of contraceptive pills (5) Tachycardia Current Visit: Yes Status: Acute Assessment and plan: resolved (6) DVT prophylaxis Current Visit: Yes Status: Acute Assessment and plan: ambulation - Subjective Interval history: 40 yo F presented with severe conversational dyspnea, admitted with a spontaneous tension pneumothorax of left side. Pt states she is feeling well today. Chest tube with hemlich valve this morning she has not had any shortness of breath, cough, racing heart beats this morning. Pt denies current chest pain , palpitations, shortness of breath, cough, calf pain, fever, chills, nausea, vomiting. - Constitutional Vitals: Temp Pulse Resp BP Pulse Ox 98.1 F 85 16 102/70 99 08/28/16 11:14 08/28/16 11:14 08/28/16 11:14 08/28/16 11:14 08/28/16 11:14 General appearance: Present: A&O X 3, pleasant, no acute distress, answers questions appropriately - Head Head exam: Present: atraumatic, normocephalic - Eye Eye exam: Present: PERRL, conjuntiva pink, sclera anicteric Pupils: Present: PERRL - Neck Neck exam general surgery: Present: supple, trachea midline. Absent: lymphadenopathy - Respiratory Respiratory exam: Present: CTAB. Absent: accessory muscle use, rales, rhonchi, wheezes - Cardiovascular Cardiovascular exam: Present: RRR, +S1, +S2. Absent: diastolic murmur, gallop, rubs, systolic murmur - GI/Abdominal GI/Abdominal exam: Present: normal bowel sounds, soft, no peritoneal signs. Absent: distended, tenderness - Extremities Exam Extremities exam: Present: warm, radial pulses palpable and symetrical. Absent : calf tenderness, cyanotic, pedal edema - Neurological Exam Neurological exam: Present: CN II-XII intact, oriented X3, no focal deficits. Absent: pronater drift, facial droop, speech deficit - Skin Skin exam: Present: dry, intact Internal Medicine: Result - Labs CBC & Chem 7: 08/23/16 04:17 08/23/16 04:17 - ABG Interpretation ABG results: PT/INR, D-dimer PT 11.1 Seconds (9.4-12.1) 08/24/16 12:35 D-Dimer 633 ng/mLFEU (0-500) H 08/22/16 18:57 - Impressions Impressions Thoracentesis 08/24/16 00:00 IMPRESSION: Successful placement of left chest tube for pneumothorax. D/ / 08/27/2016 20:20:50 Anne Marie Padilla MD / bcarter Interpreting Provider: Anne Marie Padilla MD Chest X-Ray 08/27/16 14:15 IMPRESSION: Slight interval increase in size of a now 5% left apical pneumothorax status post chest tube clamping. D/ / 08/27/2016 15:06:41 Kody Baez MD / don Interpreting Provider: Kody Baez MD Chest X-Ray 08/27/16 18:00 IMPRESSION: Small bore chest tube in place. Persistent but decreasing left apical pneumothorax. D/ / 08/27/2016 19:28:54 Saundra Sheridan MD / joshua Interpreting Provider: Saundra Sheridan MD Chest X-Ray 08/28/16 05:00 IMPRESSION: Very slight decrease in the size of the left apical pneumothorax. D/ / Clay Pozo MD / Clay Pozo MD Interpreting Provider: Clay Pozo MD Consult Discharge Plan - Plan Referrals: Padilla Flannery DO [Primary Care Provider] - 09/03/16 12:00 pm <Erick Keith - Last Filed: 08/28/16 16:33> Date of Encounter: 08/28/16 - Assessment and plan (1) Spontaneous tension pneumothorax Current Visit: Yes Status: Acute (2) Elevated d-dimer Current Visit: Yes Status: Acute (3) Tachycardia Current Visit: Yes Status: Acute (4) Anxiety about health Current Visit: Yes Status: Acute - Constitutional Vitals: Temp Pulse Resp BP Pulse Ox 98.3 F 95 16 108/71 100 08/28/16 16:15 08/28/16 16:15 08/28/16 16:15 08/28/16 16:15 08/28/16 16:15 Internal Medicine: Result - Labs CBC & Chem 7: 08/23/16 04:17 08/23/16 04:17 - ABG Interpretation ABG results: PT/INR, D-dimer PT 11.1 Seconds (9.4-12.1) 08/24/16 12:35 D-Dimer 633 ng/mLFEU (0-500) H 08/22/16 18:57 - Impressions Impressions Thoracentesis 08/24/16 00:00 IMPRESSION: Successful placement of left chest tube for pneumothorax. D/ / 08/27/2016 20:20:50 Anne Marie Padilla MD / bcarter Interpreting Provider: Anne Marie Padilla MD Chest X-Ray 08/27/16 14:15 IMPRESSION: Slight interval increase in size of a now 5% left apical pneumothorax status post chest tube clamping. D/ / 08/27/2016 15:06:41 Kody Baez MD / ebkyle Interpreting Provider: Kody Baez MD Chest X-Ray 08/27/16 18:00 IMPRESSION: Small bore chest tube in place. Persistent but decreasing left apical pneumothorax. D/ / 08/27/2016 19:28:54 Saundra Sheridan MD / joshua Interpreting Provider: Saundra Sheridan MD Chest X-Ray 08/28/16 05:00 IMPRESSION: Very slight decrease in the size of the left apical pneumothorax. D/ / Clay Pozo MD / Clay Pozo MD Interpreting Provider: Clay Pozo MD Chest X-Ray 08/28/16 12:59 IMPRESSION: Small left apical pneumothorax, mildly increased from the previous examination from approximately 7 mm to just over 1 cm. D/ / Asaf Travis MD / Asaf Travis MD Interpreting Provider: Asaf Travis MD - Attending Attestation I examined this patient and my medical decision-making was reviewed with the Resident Physician on 08/28/16. I agree with the documented findings, disposition and treatment plan as described except to the extent set forth below. Ms. Hood is currently admitted for acute PTX. She is moderate to high risk due to potential for worsening respiratory status. Ms. Hood is doing OK. Heimlich valve placed today. Up and walking. No other issue. No fever or chills. CT being managed by CT surgery service. Exam Alert. Comfortable No edema No wheeze I/P 1. PTX Further diagnoses and plan as above.
[2016-08-29 07:22] VITALS: BP 116/74
--- NOTE | 2016-08-29 08:21 | Cardiothoracic Progress Note ---
Date of Encounter: 08/29/16 Time of Encounter: 08:19 - Assessment and plan (1) Spontaneous tension pneumothorax Current Visit: Yes Status: Acute The patient is okay for discharge from my standpoint. I will see HER-2 weeks from tomorrow in the office with a chest x-ray prior to my seeing her. Hopefully , we can remove the chest tube at that time. Appropriate precautions were given. She has no questions. - Subjective Interval history: The patient has no complaints. Vital Signs, Last 4 Hours Temp Pulse Resp BP Pulse Ox 08/29/16 07:18 98 F 90 16 116/74 97 Oxgyen Flow Rate Oxygen Flow Rate (LPM) 2 Clinical Data, last 8 Hours Output, Urine Amount 300 Weight 08/27/16 08/28/16 08/29/16 23:59 23:59 23:59 Weight 67.5 kg 66.9 kg Lungs are clear to percussion and auscultation. I am unable to see a leak on the chest tube. Chest x-ray reveals an improved apical pneumothorax that measures 7 mm. - Labs 08/23/16 04:17 08/23/16 04:17 Consult Discharge Plan - Plan Referrals: Padilla Flannery DO [Primary Care Provider] - 09/03/16 12:00 pm
--- NOTE | 2016-08-29 10:29 | Pulmonology Progress Note ---
<Bruno Anglin - Last Filed: 08/29/16 11:05> Date of Encounter: 08/29/16 Time of Encounter: 10:27 Assessment and Plan (1) Spontaneous tension pneumothorax Status: Acute Patient now has a Heimlich valve. Left apical pneumothorax stable. Morning measured 7 mm. Patient is able to ambulate, not short of breath, denies chest pain, cough, wheezing. CT surgery. Patient going home. Patient will follow-up in [address] surgery. Subjective Principal diagnosis: PTX Interval history: Patient denies sob, cough, chest pain, wheezing. Objective PUL Vital signs: Last Vital Signs Temp 98 F 08/29/16 07:18 Pulse 90 08/29/16 07:18 Resp 16 08/29/16 07:18 BP 116/74 08/29/16 07:18 Pulse Ox 97 08/29/16 07:18 General appearance: no acute distress Eyes: nonicteric ENT: oropharynx moist Neck: supple Effort: normal Auscultation: bilateral: clear Cardiovascular: regular rate and rhythm Gastrointestinal: normoactive bowel sounds, non-distended Integumentary: normal Extremities: no cyanosis, no edema, no clubbing Musculoskeletal: no deformities, ROM normal normal mental status, non-focal exam mood appropriate, affect normal Results - Laboratory Findings CBC and BMP: 08/23/16 04:17 08/23/16 04:17 PT/INR, D-dimer PT 11.1 Seconds (9.4-12.1) 08/24/16 12:35 D-Dimer 633 ng/mLFEU (0-500) H 08/22/16 18:57 Abnormal lab findings: Abnormal lab results MCH 27.1 pg (28.0-33.3) L 08/23/16 04:17 D-Dimer 633 ng/mLFEU (0-500) H 08/22/16 18:57 Potassium 3.4 mEq/L (3.5-4.5) L 08/23/16 04:17 Glucose 102 mg/dL (70-99) H 08/23/16 04:17 POC Glucose 98 (58-89) H 08/22/16 21:23 Calcium 8.4 mg/dL (8.6-10.8) L 08/23/16 04:17 - Clinical Findings Intake & Output: Intake & Output 08/28/16 08/29/16 08/29/16 23:59 07:59 15:59 Intake Total 120 / 120 Output Total 450 / 450 300 / 300 Balance -450 / -450 -300 / -300 120 / 120 Consult Discharge Plan - Plan Additional Instructions: follow up with Dr. Flavio Rey in 2 weeks Repeat chest Xray September 12, 2016 may return to work and physical activity after cleared by Dr. Rey Referrals: Flavio Rey MD [Partnered Physician] - (APPT MADE BY PATIENT) Padilla Flannery DO [Primary Care Provider] - 09/03/16 12:00 pm <Eav Sexton - Last Filed: 08/29/16 15:03> Date of Encounter: 08/29/16 Objective PUL Vital signs: Last Vital Signs Temp 98 F 08/29/16 07:18 Pulse 90 08/29/16 07:18 Resp 16 08/29/16 07:18 BP 116/74 08/29/16 07:18 Pulse Ox 97 08/29/16 07:18 Results - Laboratory Findings CBC and BMP: 08/23/16 04:17 08/23/16 04:17 PT/INR, D-dimer PT 11.1 Seconds (9.4-12.1) 08/24/16 12:35 D-Dimer 633 ng/mLFEU (0-500) H 08/22/16 18:57 Abnormal lab findings: Abnormal lab results MCH 27.1 pg (28.0-33.3) L 08/23/16 04:17 D-Dimer 633 ng/mLFEU (0-500) H 08/22/16 18:57 Potassium 3.4 mEq/L (3.5-4.5) L 08/23/16 04:17 Glucose 102 mg/dL (70-99) H 08/23/16 04:17 POC Glucose 98 (58-89) H 08/22/16 21:23 Calcium 8.4 mg/dL (8.6-10.8) L 08/23/16 04:17 - Clinical Findings Intake & Output: Intake & Output 08/28/16 08/29/16 08/29/16 23:59 07:59 15:59 Intake Total 120 / 120 Output Total 450 / 450 300 / 300 Balance -450 / -450 -300 / -300 120 / 120 - Attending Attestation I examined this patient and my medical decision-making was reviewed with the BACKING IN MACHINE TENDER/PA/Advanced Practice Nurse/Resident Physician. I agree with the documented findings, disposition and treatment plan as described except to the extent set forth below. Patient seen and examined. Labs, radiology, chart personally reviewed. 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 Discussed with Dr. Rey and agree with plan of care Cardiovascular: stable
== END 2016-08-29 11:00 | disposition home or self-care (01) | DRG 201 ==
LOC: EMEROO 18:17 → 2NENU 18:17
PROVIDERS: ADMIT Internal Medicine; ATTEND Internal Medicine